=== PATIENT | male | born 1930 | race Hispanic/Latino ===

== ENCOUNTER 2018-02-02 09:53 | Emergency (ER) | payer MEDICARE, BC ==
[2018-02-02 09:54] VITALS: BMI 28.3
--- NOTE | 2018-02-02 10:04 | ED PDOC ---
Arrival/HPI - General Time Seen by Provider: 02/02/18 09:59 Historian: Patient - History of Present Illness Narrative History of Present Illness (Text): 02/02/18 10:02 87 y/o male, pmh including htn/copd/a.fibb/bladder tumor/diverticulosis/GI bleed , allergic to omeprazole, c/o rt. rib injury and pain with 2 episodes of fall for the past 2 weeks. Pt. stated that he has frequent fall for the past 2 years , seen by his own pmd Dr. Young and evaluated by the neurologist which work up is negative so far, was on the anticoagulant but resolved, last fall episode was this morning while he was going up the stair and tripped over the cane and landed on the rt. anterior chest, last fall was last week saturday which he fall over the step and landed on the rt. anterior chest, no urinary symptoms, no hematuria, no night sweat, no dizziness, no change in vision, no palpitation/ chest pain, no other medical or psychological complaints. Past Medical History - Provider Review Nursing Documentation Reviewed: Yes - Infectious Disease Hx of Infectious Diseases: None - Tetanus Immunization Tetanus Immunization: Unknown - Cardiac Hx Cardiac Disorders: Yes Hx Atrial Fibrillation: Yes Hx Hypertension: Yes Hx Pacemaker: Yes - Pulmonary Hx Respiratory Disorders: Yes Hx Chronic Obstructive Pulmonary Disease (COPD): Yes - Neurological Hx Neurological Disorder: No Hx Transient Ischemic Attacks (TIA): No - HEENT Hx HEENT Disorder: Yes (eyeglasses) Hx Cataracts: Yes (b/l sx) Hx Glaucoma: Yes - Renal Hx Renal Disorder: No Hx Renal Failure: No - Endocrine/Metabolic Hx Endocrine Disorders: Yes Hx Diabetes Mellitus Type 2: Yes - Hematological/Oncological Hx Blood Disorders: Yes (blood transfusions 4 units) Hx AIDS: No Hx Anemia: Yes (iron deficiency anemia) Hx Cancer: No Hx Chemotherapy: No Hx Cirrhosis: No Hx Hepatitis A: No Hx Hepatitis B: No Hx Hepatitis C: No Hx Metastasis: No Hx Shingles: No Hx Unexplained Bleeding: No - Integumentary Hx Dermatological Disorder: No Hx Basal Cell Carcinoma: No Hx Eczema: No Hx Melanoma: No Hx Psoriasis: No Hx Squamous Cell Carcinoma: No - Musculoskeletal/Rheumatological Hx Musculoskeletal Disorders: No Hx Falls: No - Gastrointestinal Hx Gastrointestinal Disorders: Yes Hx Gall Bladder Disease: Yes - Genitourinary/Gynecological Hx Genitourinary Disorders: Yes (bladder tumor) Hx Hematuria: No Hx Incontinence: No Hx Prostate Problems: No Hx Sexually Transmitted Diseases: No Hx Urinary Tract Infection: No - Psychiatric Hx Psychophysiologic Disorder: No Hx Emotional Abuse: No Hx Physical Abuse: No Hx Substance Use: No - Past Surgical History Past Surgical History: Unable to Obtain - Surgical History Hx Amputation: No Hx Appendectomy: No Hx Cardiac Catheterization: No Hx Cholecystectomy: Yes (nicole lap 03/10) Hx Coronary Stent: No Hx Gastric Bypass Surgery: No Hx Hysterectomy: No Hx Joint Replacement: No Hx Kidney Transplant: No Hx Liver Transplant: No Hx Mastectomy: No Hx Musculoskeletal Surgery: No Hx Open Heart Surgery: No Hx Orthopedic Surgery: No Hx Splenectomy: No Hx Valve Replacement: No Other/Comment: cysto excision of bladder tumor, colonoscopy, egd - Anesthesia Hx Anesthesia Reactions: No Hx Malignant Hyperthermia: No - Suicidal Assessment Feels Threatened In Home Enviroment: No Family/Social History - Physician Review Nursing Documentation Reviewed: Yes Family/Social History: Unknown Family HX Smoking Status: Former Smoker Hx Alcohol Use: Yes Hx Substance Use: No Allergies/Home Meds Allergies/Adverse Reactions: Allergies omeprazole Allergy (Severe, Verified 02/02/18 10:26) RASH shellfish derived Allergy (Severe, Verified 02/02/18 10:26) GI UPSET EGG Adverse Reaction (Severe, Verified 02/02/18 10:20) NAUSEA Home Medications: Home Meds Medication Instructions Recorded Confirmed Oxybutynin [Ditropan Tab] 10 mg PO DAILY 07/08/16 02/02/18 Amiodarone [Cordarone] 200 mg PO DAILY 09/14/16 02/02/18 [id number] CD [Cardizem CD] 240 mg PO DAILY 09/14/16 02/02/18 Cu/Se/Vit A/Vit C/Vit E/Zinc 1 tab PO DAILY 02/02/18 02/02/18 [Ocuvite] Ergocalciferol (Vitamin D2) 2,000 iu PO DAILY 02/02/18 02/02/18 [Vitamin D2] Multivit-Min/FA/Lycopen/Lutein 1 tab PO DAILY 02/02/18 02/02/18 [Centrum Silver Tablet] Travoprost [Travatan Z] 1 drop BOTHEYES DAILY 02/02/18 02/02/18 Vitamin B Complex [Balance B-100] 1 tab PO DAILY 02/02/18 02/02/18 Review of Systems - Review of Systems Constitutional: absent: Fatigue, Fevers Eyes: absent: Vision Changes ENT: absent: Hearing Changes Respiratory: absent: SOB, Cough Cardiovascular: absent: Chest Pain Gastrointestinal: absent: Abdominal Pain, Diarrhea, Nausea, Vomiting Musculoskeletal: Myalgias. absent: Arthralgias, Back Pain Skin: absent: Rash, Pruritis, Skin Lesions Neurological: absent: Headache, Dizziness Psychiatric: absent: Anxiety, Depression, Suicidal Ideation Physical Exam Vital Signs Reviewed: Yes Vital Signs Temp Pulse Resp BP Pulse Ox 02/02/18 10:11 97.7 F 59 L 16 185/72 H 100 Temperature: Afebrile Blood Pressure: Hypertensive Pulse: Bradycardic Respiratory Rate: Normal Appearance: Positive for: Well-Appearing, Non-Toxic, Comfortable Pain Distress: Mild Mental Status: Positive for: Alert and Oriented X 3 - Systems Exam Head: Present: Atraumatic, Normocephalic Pupils: Present: PERRL Extroacular Muscles: Present: EOMI Conjunctiva: Present: Normal Mouth: Present: Moist Mucous Membranes Neck: Present: Normal Range of Motion Respiratory/Chest: Present: Clear to Auscultation, Good Air Exchange, Tender to Palpation (+ttp on the rt. anterior lateral rib cage region, no ecchymosis/ laceration/abrasion. ). No: Respiratory Distress, Accessory Muscle Use, Wheezes , Decreased Breath Sounds, Rales, Retracting, Rhonchi, Tachypneic Cardiovascular: Present: Regular Rate and Rhythm, Normal S1, S2. No: Murmurs Abdomen: Present: Normal Bowel Sounds. No: Tenderness, Distention, Peritoneal Signs Back: Present: Normal Inspection. No: CVA Tenderness, Midline Tenderness, Paraspinal Tenderness Upper Extremity: Present: Normal Inspection. No: Cyanosis, Edema Lower Extremity: Present: Normal Inspection. No: Edema Neurological: Present: GCS=15, CN II-XII Intact, Speech Normal, Motor Func Grossly Intact, Memory Normal Skin: Present: Warm, Dry, Normal Color. No: Rashes Psychiatric: Present: Alert, Oriented x 3, Normal Insight, Normal Concentration Medical Decision Making ED Course and Treatment: 02/02/18 10:33 -labs/ua -CT head/chest -tylenol -observe and reassess 02/02/18 12:29 -CT head: No acute intracranial abnormalities. No significant findings to account for the clinical presentation. No significant interval change compared to the prior examination(s). -CT facial: No acute findings related to/accounting for the clinical presentation. -labs are non-significant except hgb 11.7 from 11.2 (chronic anemia), BUN is 22 (drinking fluid and tolerating po), UA show mild leukocyte which will treat with keflex. -Discharge home with tylenol, keflex, ice compression, bed rest, follow up with your own pmd and orthopedic within 2 days, return to the ER for any new or worsening signs or symptoms. - Lab Interpretations Lab Results: 02/02/18 11:07 02/02/18 11:07 Lab Results 02/02/18 11:07: Urine Color Yellow, Urine Appearance Clear, Urine pH 7.0, Ur Specific [place] 1.015, Urine Protein Negative, Urine Glucose (UA) Negative, Urine Ketones Negative, Urine Blood Negative, Urine Nitrate Negative, Urine Bilirubin Negative, Urine Urobilinogen 1.0 H, Ur Leukocyte Esterase Trace H, Urine RBC Negative, Urine WBC 2 - 5, Ur Epithelial Cells 0 - 2, Urine Bacteria Large 02/02/18 11:07: WBC 5.3, RBC 4.01, Hgb 11.7 L, Hct 36.3 L, MCV 90.5, MCH 29.2, MCHC 32.2, RDW 14.7 H, Plt Count 197, MPV 11.0, Gran % 67.0, Lymph % (Auto) 18.9 L, [place] % (Auto) 10.9 H, Eos % (Auto) 2.6, Baso % (Auto) 0.6, Gran # 3.57, Lymph # (Auto) 1.0 L, [place] # (Auto) 0.6, Eos # (Auto) 0.1, Baso # (Auto) 0.03 02/02/18 11:07: Sodium 140, Potassium 4.3, Chloride 104, Carbon Dioxide 29, Anion Gap 12, BUN 22 H, Creatinine 1.0, Est GFR ( Amer) > 60, Est GFR ( Non-Af Amer) > 60, Random Glucose 105, Calcium 9.4, Total Bilirubin 0.6, AST 45 , ALT 36, Alkaline Phosphatase 85, Total Protein 7.1, Albumin 3.9, Globulin 3.2 , Albumin/Globulin Ratio 1.2 - RAD Interpretation Radiology Orders: 02/02/18 10:30 CHEST W/O CONTRAST [CT] Stat HEAD W/O CONTRAST [CT] Stat CT Head: No intracranial hemorrhage. BRAIN: No mass effect or edema. 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 VENTRICLES: Unremarkable. No hydrocephalus. CALVARIUM: Unremarkable. PARANASAL SINUSES: Unremarkable as visualized. No significant inflammatory changes. MASTOID AIR CELLS: Unremarkable as visualized. No inflammatory changes. OTHER FINDINGS: None. IMPRESSION: No acute intracranial abnormalities. No significant findings to account for the clinical presentation. No significant interval change compared to the prior examination(s). -------- CT Chest: COMPARISON: None TECHNIQUE: Contiguous axial images were obtained through the chest without intravenous contrast enhancement. Sagittal and coronal reconstructions were performed. Radiation dose (DLP): 386.45 mGy-cm. This CT exam was performed using one or more of the following dose reduction techniques: Automated exposure control, adjustment of the mA and/or kV according to patient size, and/or use of iterative reconstruction technique. FINDINGS: LUNGS: Clear lungs. Visualized airway clear. MEDIASTINUM: Unremarkable thoracic aorta. No aneurysm. Normal sized heart. Main pulmonary artery unremarkable. No vascular congestion. No lymphadenopathy. PLEURA: No pleural fluid. No pneumothorax. BONES: No fracture. No destructive lesion. UPPER ABDOMEN: Grossly unremarkable. OTHER FINDINGS: None. IMPRESSION: No acute findings related to/accounting for the clinical presentation. Financial Aid Coordinator: Radiologist - Medication Orders Current Medication Orders: Discontinued Medications Acetaminophen (Tylenol 325mg Tab) 650 mg PO STAT STA Stop: 02/02/18 10:32 Last Admin: 02/02/18 10:54 Dose: 650 mg MAR Pain/Vitals Document 02/02/18 10:54 EWO (Rec: 02/02/18 10:56 EWO [id number]) Pain Reassessment Is This A Pain ReAssessment? No Sleep Is patient sleeping during reassessment? 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 Disposition/Present on Arrival - Present on Arrival Any Indicators Present on Arrival: No History of DVT/PE: Yes History of Uncontrolled Diabetes: No Urinary Catheter: No History of Decub. Ulcer: No History Surgical Site Infection Following: None - Disposition Have Diagnosis and Disposition been Completed?: Yes Diagnosis: Rib pain, Accidental fall, UTI (urinary tract infection) Disposition: HOME/ ROUTINE Disposition Time: 10:38 Patient Plan: Discharge Condition: IMPROVED Additional Instructions: -Discharge home with tylenol, keflex, ice compression, bed rest, follow up with your own pmd and orthopedic within 2 days, return to the ER for any new or worsening signs or symptoms. Prescriptions: Acetaminophen [Tylenol 325mg tab] 2 tab PO QID PRN #30 tab PRN Reason: Other Cephalexin [cephalexin] 500 mg PO TID #21 cap Referrals: José Miguel Young MD [Primary Care Provider] - Follow up with primary Alexandra Verdin MD [Staff Provider] - Follow up with primary
[2018-02-02 10:32] VITALS: TEMP 97.7
[2018-02-02 11:26] LABS: ALB/GLOB RATIO 1.2 (1.1-1.8); ALBUMIN 3.9 g/dL (3.0-4.8); ALT/SGPT 36 U/L (7-56); AST/SGOT 45 U/L (17-59); BLOOD UREA NITROGEN 22 mg/dL (7-21); CALCIUM 9.4 mg/dL (8.4-10.5); GFR AFRICAN-AMERICAN > 60; GFR NON-AFRICAN AMERICAN > 60
[2018-02-02 11:35] LABS: BASO # 0.03 K/mm3 (0.0-2.0); BASO % 0.6 % (0.0-3.0); EOS # 0.1 (0.0-0.7); EOS % 2.6 % (1.5-5.0); GRAN # 3.57 (1.4-6.5); HEMOGLOBIN 11.7 g/dL (14.0-18.0); LYMPH % 18.9 % (22.0-35.0); MEAN CELL VOLUME 90.5 fl (80.0-105.0); MEAN CORPUSCULAR HEMOGLOBIN 29.2 pg (25.0-35.0); MEAN CORPUSCULAR HGB CONC 32.2 g/dl (31.0-37.0); MONO # 0.6 (0.1-0.6); MONO % 10.9 % (1.0-6.0); RBC 4.01 10^6/uL (3.5-6.1); RED CELL DISTRIBUTION WIDTH 14.7 % (11.5-14.5); URINE BILIRUBIN NEGATIVE (NEGATIVE); URINE BLOOD NEGATIVE (NEGATIVE); URINE GLUCOSE (UA) NEGATIVE (NEGATIVE); URINE LEUKOCYTE ESTERASE TRACE Leu/uL (NEGATIVE); URINE PROTEIN NEGATIVE mg/dL (<30 mg/dL); WHITE BLOOD COUNT 5.3 10^3/ul (4.5-11.0)
[2018-02-02 11:36] LABS: URINE APPEARANCE CLEAR (CLEAR); URINE COLOR YELLOW (YELLOW)
[2018-02-02 11:49] LABS: URINE BACTERIA LARGE (NEG); URINE EPITHELIAL CELLS 0 - 2 /hpf (0-5); URINE RBC NEGATIVE /hpf (0-2)
--- NOTE | 2018-02-02 11:50 | CT ---
PROCEDURE: CT HEAD WITHOUT CONTRAST. HISTORY: frequent fall COMPARISON: 09/14/2016 CT head TECHNIQUE: Axial computed tomography images were obtained through the head/brain without intravenous contrast. Coronal and sagittal reconstructed images. Radiation dose: Total exam DLP = 836.86 mGy-cm. This CT exam was performed using one or more of the following dose reduction techniques: Automated exposure control, adjustment of the mA and/or kV according to patient size, and/or use of iterative reconstruction technique. FINDINGS: HEMORRHAGE: No intracranial hemorrhage. BRAIN: No mass effect or edema. 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 VENTRICLES: Unremarkable. No hydrocephalus. CALVARIUM: Unremarkable. PARANASAL SINUSES: Unremarkable as visualized. No significant inflammatory changes. MASTOID AIR CELLS: Unremarkable as visualized. No inflammatory changes. OTHER FINDINGS: None. IMPRESSION: No acute intracranial abnormalities. No significant findings to account for the clinical presentation. No significant interval change compared to the prior examination(s).
--- NOTE | 2018-02-02 11:54 | CT ---
PROCEDURE: CT Chest without contrast HISTORY: fall, rt. sided rib pain and injury COMPARISON: None TECHNIQUE: Contiguous axial images were obtained through the chest without intravenous contrast enhancement. Sagittal and coronal reconstructions were performed. Radiation dose (DLP): 386.45 mGy-cm. This CT exam was performed using one or more of the following dose reduction techniques: Automated exposure control, adjustment of the mA and/or kV according to patient size, and/or use of iterative reconstruction technique. FINDINGS: LUNGS: Clear lungs. Visualized airway clear. MEDIASTINUM: Unremarkable thoracic aorta. No aneurysm. Normal sized heart. Main pulmonary artery unremarkable. No vascular congestion. No lymphadenopathy. PLEURA: No pleural fluid. No pneumothorax. BONES: No fracture. No destructive lesion. UPPER ABDOMEN: Grossly unremarkable. OTHER FINDINGS: None. IMPRESSION: No acute findings related to/accounting for the clinical presentation.
[2018-02-02 12:57] VITALS: BP 159/80; PULSE 78; RESP 18; O2SAT 98
== END 2018-02-02 13:03 | disposition home or self-care (01) ==
LOC: ED 09:53
DX: R07.81 Pleurodynia (principal); W01.0XXA Fall on same level from slipping, tripping and stumbling without subsequent striking against object, initial encounter; Z91.81 History of falling; Y92.89 Other specified places as the place of occurrence of the external cause; N39.0 Urinary tract infection, site not specified; I48.91 Unspecified atrial fibrillation; I10 Essential (primary) hypertension; Z95.0 Presence of cardiac pacemaker; E11.9 Type 2 diabetes mellitus without complications; D50.9 Iron deficiency anemia, unspecified; Z87.891 Personal history of nicotine dependence

== ENCOUNTER 2018-10-14 23:54 | Inpatient (IN) | payer MEDICARE, BC ==
[2018-10-15] VITALS: BMI 25.4
[2018-10-15] MEDS ORDERED: TraMADol/Apap 37.5/325 mg Tab PO STA (00:13)
[2018-10-15] MEDS ORDERED: TDAP Vaccine 0.5 mL Syr IM ONE (00:13)
--- NOTE | 2018-10-15 00:18 | ED PDOC ---
Arrival/HPI - General Historian: Patient, EMS - History of Present Illness Narrative History of Present Illness (Text): 10/15/18 00:14 87 y/o male, last tetanus doesn't remember, pmh including htn/a.fibb(was on anticoagulant)/copd/bladder tumor, allergic to PPI, bib s/p fall with head injury and laceration along with left hip pain x 5.5 hours. Pt. stated that he was carrying the trash bag, fall to the left hip region and posterior head injury, sustained scalp laceration, no LOC, able to recall the whole event, no night sweat, no rash, no chest pain or palpitation, no other medical or psychological complaints. Context: Home <Pranav Shaffer - Last Filed: 10/15/18 16:34> <Ravi Jordan - Last Filed: 10/17/18 11:35> - General Chief Complaint: Trauma Past Medical History - Provider Review Nursing Documentation Reviewed: Yes - Infectious Disease Hx of Infectious Diseases: None - Tetanus Immunization Tetanus Immunization: Unknown - Cardiac Hx Cardiac Disorders: Yes Hx Atrial Fibrillation: Yes Hx Hypertension: Yes Hx Pacemaker: Yes - Pulmonary Hx Respiratory Disorders: Yes Hx Chronic Obstructive Pulmonary Disease (COPD): Yes - Neurological Hx Neurological Disorder: No Hx Transient Ischemic Attacks (TIA): No - HEENT Hx HEENT Disorder: Yes (eyeglasses) Hx Cataracts: Yes (b/l sx) Hx Glaucoma: Yes - Renal Hx Renal Disorder: No Hx Renal Failure: No - Endocrine/Metabolic Hx Endocrine Disorders: Yes Hx Diabetes Mellitus Type 2: Yes - Hematological/Oncological Hx Blood Disorders: Yes (blood transfusions 4 units) Hx AIDS: No Hx Anemia: Yes (iron deficiency anemia) Hx Cancer: No Hx Chemotherapy: No Hx Cirrhosis: No Hx Hepatitis A: No Hx Hepatitis B: No Hx Hepatitis C: No Hx Metastasis: No Hx Shingles: No Hx Unexplained Bleeding: No - Integumentary Hx Dermatological Disorder: No Hx Basal Cell Carcinoma: No Hx Eczema: No Hx Melanoma: No Hx Psoriasis: No Hx Squamous Cell Carcinoma: No - Musculoskeletal/Rheumatological Hx Musculoskeletal Disorders: No Hx Falls: No - Gastrointestinal Hx Gastrointestinal Disorders: Yes Hx Gall Bladder Disease: Yes - Genitourinary/Gynecological Hx Genitourinary Disorders: Yes (bladder tumor) Hx Hematuria: No Hx Incontinence: No Hx Prostate Problems: No Hx Sexually Transmitted Diseases: No Hx Urinary Tract Infection: No - Psychiatric Hx Psychophysiologic Disorder: No Hx Emotional Abuse: No Hx Physical Abuse: No Hx Substance Use: No - Past Surgical History Past Surgical History: Unable to Obtain - Surgical History Hx Amputation: No Hx Appendectomy: No Hx Cardiac Catheterization: No Hx Cholecystectomy: Yes (nicole lap 03/10) Hx Coronary Stent: No Hx Gastric Bypass Surgery: No Hx Hysterectomy: No Hx Joint Replacement: No Hx Kidney Transplant: No Hx Liver Transplant: No Hx Mastectomy: No Hx Musculoskeletal Surgery: No Hx Open Heart Surgery: No Hx Orthopedic Surgery: No Hx Splenectomy: No Hx Valve Replacement: No Other/Comment: cysto excision of bladder tumor, colonoscopy, egd - Anesthesia Hx Anesthesia Reactions: No Hx Malignant Hyperthermia: No - Suicidal Assessment Feels Threatened In Home Enviroment: No <Pranav Shaffer - Last Filed: 10/15/18 16:34> Family/Social History - Physician Review Nursing Documentation Reviewed: Yes Family/Social History: Unknown Family HX Smoking Status: Former Smoker Hx Alcohol Use: Yes Hx Substance Use: No <Pranav Shaffer - Last Filed: 10/15/18 16:34> Allergies/Home Meds <Pranav Shaffer - Last Filed: 10/15/18 16:34> <Ravi Jordan - Last Filed: 10/17/18 11:35> Allergies/Adverse Reactions: Allergies omeprazole Allergy (Severe, Verified 02/02/18 10:26) RASH shellfish derived Allergy (Severe, Verified 02/02/18 10:26) GI UPSET EGG Adverse Reaction (Severe, Verified 02/02/18 10:20) NAUSEA Home Medications: Home Meds Medication Instructions Recorded Confirmed RX: Oxybutynin [Ditropan Tab] 10 mg PO DAILY 07/08/16 02/02/18 RX: Amiodarone [Cordarone] 200 mg PO DAILY 09/14/16 02/02/18 RX: diltiaZEM CD [Cardizem CD] 240 mg PO DAILY 09/14/16 02/02/18 RX: Cu/Se/Vit A/Vit C/Vit E/Zinc 1 tab PO DAILY 02/02/18 02/02/18 [Ocuvite] RX: Ergocalciferol (Vitamin D2) 2,000 iu PO DAILY 02/02/18 02/02/18 [Vitamin D2] RX: Multivit-Min/FA/Lycopen/Lutein 1 tab PO DAILY 02/02/18 02/02/18 [Centrum Silver Tablet] RX: Travoprost [Travatan Z] 1 drop BOTHEYES DAILY 02/02/18 02/02/18 RX: Vitamin B Complex [Balance 1 tab PO DAILY 02/02/18 02/02/18 B-100] Review of Systems - Review of Systems Constitutional: absent: Fatigue, Fevers Eyes: absent: Vision Changes ENT: absent: Hearing Changes Respiratory: absent: SOB, Cough Cardiovascular: absent: Chest Pain Gastrointestinal: absent: Abdominal Pain, Diarrhea, Nausea, Vomiting Musculoskeletal: Arthralgias. absent: Back Pain, Neck Pain, Joint Swelling Skin: Laceration. absent: Rash, Pruritis, Skin Lesions, Abscess, Ulcer, Cellulitis Neurological: absent: Headache, Dizziness Psychiatric: absent: Anxiety, Depression, Suicidal Ideation <Pranav Shaffer Q - Last Filed: 10/15/18 16:34> Physical Exam Vital Signs Reviewed: Yes Vital Signs Temp Pulse Resp BP Pulse Ox 10/15/18 00:00 98.8 F 57 L 16 145/64 100 Temperature: Afebrile Blood Pressure: Normal Pulse: Bradycardic Respiratory Rate: Normal Appearance: Positive for: Well-Appearing, Non-Toxic, Comfortable Pain Distress: Mild Mental Status: Positive for: Alert and Oriented X 3 - Systems Exam Head: Present: Laceration (posterior occipital visible approx. 2cm superficial laceration noted), Other (no facial bony tenderness or swelling. ). No: Tenderness, Contusion, Swelling, Ecchymosis, Abrasion Pupils: Present: PERRL Extroacular Muscles: Present: EOMI Conjunctiva: Present: Normal Ears: Present: NORMAL TM, Normal Canal Mouth: Present: Moist Mucous Membranes Pharnyx: Present: Normal. No: ERYTHEMA, EXUDATE, TONSILS ENLARGED Nose (External): Present: Atraumatic. No: Abrasion, Contusion, Laceration Nose (Internal): Present: Normal Inspection, No Active Bleeding. No: Rhinorrhea, Septal Hematoma, Epistaxis Neck: Present: Normal Range of Motion, Trachea Midline. No: Meningeal Signs, MIDLINE TENDERNESS, Paraspinal Tenderness, Lymphadenopathy Respiratory/Chest: Present: Clear to Auscultation, Good Air Exchange. No: Respiratory Distress, Accessory Muscle Use, Wheezes, Decreased Breath Sounds, Rales, Retracting, Rhonchi, Tachypneic, Tender to Palpation Cardiovascular: Present: Regular Rate and Rhythm, Normal S1, S2. No: Murmurs Abdomen: No: Tenderness, Distention, Peritoneal Signs, Rebound, Guarding Back: Present: Normal Inspection. No: CVA Tenderness, Midline Tenderness, Paraspinal Tenderness, Pain with Leg Raise, Decubitus Ulcer Upper Extremity: Present: Normal Inspection, Normal ROM, NORMAL PULSES, Neurovascularly Intact. No: Cyanosis, Edema, Tenderness, Swelling, Deformity Lower Extremity: Present: Normal Inspection, NORMAL PULSES, Normal ROM, Neurovascularly Intact, Capillary Refill < 2 s, Other (Lt. hip: mild tenderness but no swellin, no ecchymosis, FROM without limitation, sensation intact, motor 5/5, +DPPT pulses, capillary refill< 2 seconds neurovascular intact. ). No: Edema, CALF TENDERNESS, Swelling, Deformity Neurological: Present: GCS=15, CN II-XII Intact, Speech Normal, Motor Func Grossly Intact, Memory Normal Skin: Present: Warm, Dry, Normal Color. No: Rashes Psychiatric: Present: Alert, Oriented x 3, Normal Insight, Normal Concentration <Pranav Shaffer - Last Filed: 10/15/18 16:34> Vital Signs Temp Pulse Resp BP Pulse Ox 10/15/18 01:11 97.8 F 10/15/18 00:30 62 18 112/61 98 10/15/18 00:00 98.8 F 57 L 16 145/64 100 <Ravi Jordan - Last Filed: 10/17/18 11:35> Medical Decision Making ED Course and Treatment: 10/15/18 00:20 -labs -CT -Xray -EKG -tdap/tramadol -wound irrigate/clean, will staple -Observe and reassess 10/15/18 01:44 PROCEDURE: LACERATION REPAIR Performed by the emergency provider Location: posterior occipital Length: 2 cm Description: {"clean wound edges","no foreign bodies"} Distal CMS: Normal. No deficits. Neurovascularly intact. Anesthesia: Lidocaine 1% 0.5cc Preparation: The wound was cleaned with NS 1000cc and Betadyne. The area was prepped and draped in the usual sterile fashion. Exploration: The wound was explored and no foreign bodies were found. Procedure: The wound was closed with shade. There was {good / appropriate / adequate / loose} approximation. In total, 5 were used. Post-Procedure: Good closure and hemostasis. The patient tolerated the procedure well and there were no complications. CSM remains intact. Post procedure dressing applied. -EKG: Atrial Pace @ 58 BPM, no ST elevation or depression, no T wave inversion -CT Head ordered and pending result. -Hip and pelvis xrays: ER wet read: +degenerative changes, no fracture or dislocation -CXR ER wet read: +pace maker, no active disease -Labs show no acute findings except BNP 2380 with no previous comparison (2016 echo show no signs of CHF except pulmonary htn and tricuspid regurgitation) -CPK 175 -UA ordered and pending result. -Case discussed with DR. Jordan as he would follow up the CT head and UA result plus the dispo of this patient, shade need to be removed by day 7 - RAD Interpretation Radiology Orders: 10/15/18 00:13 HEAD W/O CONTRAST [CT] Stat HIP MIN 2V W/ PELVIS DANAE [RAD] Stat -CT Head: see report -Hip and pelvis xrays: no acute findings ------ ------ -CXR: no active disease Pharmacologist: Radiologist - EKG Interpretation EKG Interpretation (Text): 10/15/18 01:43 -EKG: Atrial Pace @ 58 BPM, no ST elevation or depression, no T wave inversion Interpreted by ED Physician: Yes Type: 12 lead EKG <Shaffer,Pranav Q - Last Filed: 10/15/18 16:34> ED Course and Treatment: CT Head: There is normal configuration of sella turcica. There are no intra or extra- axial collections. There is no mass effect or midline shift. There is no evidence of hematoma formation. No hydrocephalus is present. The ventricles are symmetrical. No abnormal calcifications are present. There is diffuse age-appropriate cerebellar and cerebral atrophy with proportionally dilated ventricles and cortical sulci. There are bilateral periventricular and subcortical white matter hypolucencies compatible with mild chronic microvascular disease. Otherwise, no significant focal abnormalities are seen either in the posterior fossa or supratentorial compartment. Mild chronic mucosal inflammatory changes of the maxillary sinuses and ethmoid air cells. IMPRESSION: 1. Age-appropriate cerebellar and cerebral atrophy. 2. Mild chronic microvascular disease. 3. No evidence of acute intracranial pathology. Electronically signed on Oct 15, 2018 2:24:28 AM EST by: Adrián Benavides M.D., Certified by ABR, MSK, Neuroradiology case d/w dr bradford will obs on tele for near syncope - Lab Interpretations Lab Results: 10/15/18 00:49 10/15/18 00:49 Lab Results 10/15/18 00:49: WBC 11.8 H, RBC 3.84, Hgb 11.2 L, Hct 34.2 L, MCV 89.1, MCH 29.2, MCHC 32.7, RDW 14.8 H, Plt Count 233, MPV 10.2, Gran % 82.8 H, Lymph % (Auto) 7.6 L, Gaston % (Auto) 9.1 H, Eos % (Auto) 0.3 L, Baso % (Auto) 0.2, Gran # 9.78 H, Lymph # (Auto) 0.9 L, Gaston # (Auto) 1.1 H, Eos # (Auto) 0.0, Baso # (Auto) 0.02 10/15/18 00:49: Sodium 138, Potassium 3.8, Chloride 105, Carbon Dioxide 28, Anion Gap 9 L, BUN 19, Creatinine 0.8, Est GFR ( Amer) > 60, Est GFR (Non-Af Amer) > 60, Random Glucose 137 H, Calcium 8.5, Total Bilirubin 0.6, AST 41, ALT 42, Alkaline Phosphatase 83, Total Creatine Kinase 175, NT-Pro-B Natriuret Pep 2380 H, Total Protein 6.4, Albumin 3.3, Globulin 3.0, Albumin/Glob ulin Ratio 1.1 - RAD Interpretation Radiology Orders: 10/15/18 00:13 HEAD W/O CONTRAST [CT] Stat HIP MIN 2V W/ PELVIS DANAE [RAD] Stat 10/15/18 00:15 CHEST TWO VIEWS (PA/LAT) [RAD] Stat - Medication Orders Current Medication Orders: Discontinued Medications Tetanus/Reduced Diphtheria/Acell Pertussis (Boostrix Vaccine Inj) 0.5 ml IM .ONCE ONE Stop: 10/15/18 00:14 Last Admin: 10/15/18 01:03 Dose: 0.5 ml MAR Immunization Data Document 10/15/18 01:03 IT (Rec: 10/15/18 01:03 IT [id number]) Immunization Data Vaccine Information Sheet Given Yes Tramadol/Acetaminophen (Ultracet 37.5/325 Mg) 1 tab PO STAT STA Stop: 10/15/18 00:14 Last Admin: 10/15/18 01:04 Dose: 1 tab MAR Pain Assessment Document 10/15/18 01:04 IT (Rec: 10/15/18 01:04 IT [id number]) Pain Reassessment Is this a pain reassessment? Yes Pain Scale Used Protocol: PSCALES Pain Scale Used Numeric Location Left, Right or Bilateral Left Pain Location Body Site Hip <Ravi Jordan - Last Filed: 10/17/18 11:35> - PA / LEATHER FLESHER / Resident Statement MD/DO has reviewed & agrees with the documentation as recorded. <Pranav Shaffer - Last Filed: 10/15/18 16:34> Disposition/Present on Arrival - Present on Arrival Any Indicators Present on Arrival: No History of DVT/PE: Yes History of Uncontrolled Diabetes: No Urinary Catheter: No History of Decub. Ulcer: No History Surgical Site Infection Following: None - Disposition Have Diagnosis and Disposition been Completed?: Yes Disposition Time: 02:25 <Pranav Shaffer - Last Filed: 10/15/18 16:34> <Ravi Jordan - Last Filed: 10/17/18 11:35> - Disposition Diagnosis: Scalp laceration, Fall, Hip pain, Elevated brain natriuretic peptide (BNP) level, Unstable gait Disposition: HOSPITALIZED Patient Problems: Current Active Problems Problem Status Onset Elevated brain natriuretic peptide (BNP) level Acute Fall Acute Hip pain Acute Scalp laceration Acute Unstable gait Acute Condition: STABLE
[2018-10-15 01:00] LABS: BASO # 0.02 K/mm3 (0.0-2.0); BASO % 0.2 % (0.0-3.0); EOS % 0.3 % (1.5-5.0); GRAN # 9.78 (1.4-6.5); GRAN % 82.8 % (50.0-68.0); HEMOGLOBIN 11.2 g/dL (14.0-18.0); LYMPH # 0.9 (1.2-3.4); LYMPH % 7.6 % (22.0-35.0); MEAN CELL VOLUME 89.1 fl (80.0-105.0); MEAN CORPUSCULAR HEMOGLOBIN 29.2 pg (25.0-35.0); MEAN CORPUSCULAR HGB CONC 32.7 g/dl (31.0-37.0); MEAN PLATELET VOLUME 10.2 fl (7.0-11.0); MONO # 1.1 (0.1-0.6); MONO % 9.1 % (1.0-6.0); RBC 3.84 10^6/uL (3.5-6.1); RED CELL DISTRIBUTION WIDTH 14.8 % (11.5-14.5); WHITE BLOOD COUNT 11.8 10^3/uL (4.5-11.0)
[2018-10-15 01:10] LABS: ALB/GLOB RATIO 1.1 (1.1-1.8); ALBUMIN 3.3 g/dL (3.0-4.8); ALT/SGPT 42 U/L (7-56); AST/SGOT 41 U/L (17-59); BLOOD UREA NITROGEN 19 mg/dL (7-21); CALCIUM 8.5 mg/dL (8.4-10.5); GFR NON-AFRICAN AMERICAN > 60
[2018-10-15 01:19] LABS: B-TYPE NATRIURETIC PEPTIDE 2380 pg/mL (0-450)
[2018-10-15] MEDS ORDERED: Bacitracin 500 Units/gm Oint Foilpak UD ONE (02:22)
[2018-10-15 03:43] LABS: URINE BILIRUBIN NEGATIVE (NEGATIVE); URINE BLOOD TRACE-INTACT (NEGATIVE); URINE GLUCOSE (UA) NEGATIVE (NEGATIVE); URINE LEUKOCYTE ESTERASE SMALL Leu/uL (NEGATIVE); URINE PROTEIN NEGATIVE mg/dL (<30 mg/dL)
[2018-10-15 03:53] LABS: URINE APPEARANCE CLOUDY (CLEAR); URINE COLOR DARK YELLOW (YELLOW)
[2018-10-15 03:55] LABS: URINE RBC 0 - 2 /hpf (0-2)
[2018-10-15 03:56] LABS: URINE BACTERIA LARGE (NEG)
[2018-10-15 09:48] LABS: BASO # 0.02 K/mm3 (0.0-2.0); BASO % 0.2 % (0.0-3.0); EOS % 0.4 % (1.5-5.0); GRAN # 6.96 (1.4-6.5); GRAN % 81.3 % (50.0-68.0); HEMOGLOBIN 10.2 g/dL (14.0-18.0); LYMPH # 0.8 (1.2-3.4); LYMPH % 8.9 % (22.0-35.0); MEAN CELL VOLUME 88.9 fl (80.0-105.0); MEAN CORPUSCULAR HEMOGLOBIN 29.1 pg (25.0-35.0); MEAN CORPUSCULAR HGB CONC 32.7 g/dl (31.0-37.0); MEAN PLATELET VOLUME 10.7 fl (7.0-11.0); MONO # 0.8 (0.1-0.6); MONO % 9.2 % (1.0-6.0); RBC 3.51 10^6/uL (3.5-6.1); RED CELL DISTRIBUTION WIDTH 14.9 % (11.5-14.5); WHITE BLOOD COUNT 8.6 10^3/uL (4.5-11.0)
--- NOTE | 2018-10-15 09:55 | CT ---
Date of service: 10/15/2018 PROCEDURE: CT HEAD WITHOUT CONTRAST. HISTORY: fall, head injury COMPARISON: 02/02/2018 TECHNIQUE: Axial computed tomography images were obtained through the head/brain without intravenous contrast. Supplemental Coronal and Sagittal projections created and reviewed. Radiation dose: Total exam DLP = 1021.58 mGy-cm. This CT exam was performed using one or more of the following dose reduction techniques: Automated exposure control, adjustment of the mA and/or kV according to patient size, and/or use of iterative reconstruction technique. FINDINGS: HEMORRHAGE: No intracranial hemorrhage. BRAIN: No mass effect or edema. Cortical and cerebellar atrophy, periventricular small vessel disease. VENTRICLES: Unremarkable. No hydrocephalus. CALVARIUM: Unremarkable. PARANASAL SINUSES: Chronic ethmoid and maxillary sinus disease. Hypoplastic frontal sinuses. MASTOID AIR CELLS: Unremarkable as visualized. No inflammatory changes. OTHER FINDINGS: Scalp contusion high posterior right parietal region without calvarial or underlying intracranial abnormality IMPRESSION: No acute intracranial abnormalities. No significant findings to account for the clinical presentation. No significant interval change compared to the prior examination(s). Concordant results (preliminary interpretation) provided by LAURA BHATT. Procedure Completed: 01:23 Preliminary Report: Dictated and Authenticated: 02:24. Final Interpretation: 09:53.
--- NOTE | 2018-10-15 10:12 | CP.PCM.HP ---
<Alex Wong - Last Filed: 10/15/18 15:20> History of Present Illness - History of Present Illness History of Present Illness: H&P for Dr. Langford Service CC: Fall with head trauma, possible syncopal episode This is an 87 yo M with PMH of HTN, Afib, PPM placement, COPD, Bladder tumor s/p resection, DM2, and anemia who presents with complaint of fall at home with head trauma, stuck on floor (for approx 6 hrs) unable to stand up again. As per patient, was ambulating at home with walker, and suddenly fell backwards, striking his left hip and posterior left head. He denies loss of consciousness, but is unable to describe an etiology for the fall; denies tripping, syncope/near-syncope when standing, palpitations, generalized or focal weakness prior to the fall, dizziness, vision changes, fevers, chills, tremors, loss of bowel control, or acute-onset fatigue. Wears a diaper, so cannot attest to bladder incontinence specific to the event. He reports being on the ground for approximately 6 hours before he was able to crawl into the adjacent room and retrieve his cell phone to call 911. Was wearing a life-alert style wristband, but did not think to use it. In the ED, his scalp laceration was stapled closed, he underwent Head CT that was negative for acute intracranial process, and a left hip Xray negative for fracture. He is currently resting in bed comfortably (at time of exam), with no complaints. Denies headache, dizziness, shortness of breath, chest pain, room-s pinning, dizziness, or focal weakness. 12-system ROS reviewed and negative except as above. PMH: as above PSH: pacer placement Fam Hx: pt denies Soc Hx: lung ca (sister) PMD: Dr. Young Present on Admission - Present on Admission Any Indicators Present on Admission: Yes History of DVT/PE: Yes History of Uncontrolled Diabetes: No Review of Systems - Review of Systems All systems: reviewed and no additional remarkable complaints except (as per HPI) Past Patient History - Infectious Disease Hx of Infectious Diseases: None - Tetanus Immunizations Tetanus Immunization: Unknown - Past Social History Smoking Status: Former Smoker - CARDIAC Hx Cardiac Disorders: Yes Hx Angina: No Hx Cardia Arrhythmia: Yes Hx Circulatory Problems: No Hx Congestive Heart Failure: No Hx Heart Murmur: No Hx Heart Transplant: No Hx Hypercholesterolemia: Yes Hx Hypertension: Yes Hx Internal Defibrillator: No Hx Mitral Valve Prolapse: No Hx Pacemaker: Yes Hx Peripheral Edema: Yes Hx Peripheral Vascular Disease: No - PULMONARY Hx Respiratory Disorders: Yes Hx Asthma: No Hx Bronchitis: Yes Hx Chronic Obstructive Pulmonary Disease (COPD): Yes Hx Emphysema: No Hx Pneumonia: No Hx Respiratory Aspiration: No Hx Respiratory Tract Infection: No Hx Sleep Apnea: No Hx Tuberculosis: No - NEUROLOGICAL Hx Neurological Disorder: No Hx Alzheimer's Disease: No HX Cerebrovascular Accident: No Hx Dementia: No Hx Dizziness: No Hx Meningitis: No Hx Migraine: No Hx Parkinson's Disease: No Hx Seizures: No Hx Transient Ischemic Attacks (TIA): No - HEENT Hx HEENT Problems: Yes Hx Blind: No Hx Cataracts: Yes Hx Deafness: Yes Hx Difficulty Chewing: No Hx Epistaxis: No Hx Glaucoma: No Hx Macular Degeneration: No Other/Comment: wears glasses - RENAL Hx Chronic Kidney Disease: No Hx Dialysis: No Hx Kidney Stones: No Hx Neurogenic Bladder: No Hx Pyelonephritis: No Hx Renal (Kidney) Cancer: No Hx Renal Failure: No - ENDOCRINE/METABOLIC Hx Endocrine Disorders: Yes Hx Adrenal Cancer: No Hx Diabetes Insipidus: No Hx Diabetes Mellitus Type 1: No Hx Diabetes Mellitus Type 2: Yes Hx Hyperthyroidism: No Hx Hypothyroidism: No Hx Systemic Lupus Erythematosus: No - HEMATOLOGICAL/ONCOLOGICAL Hx Blood Disorders: No Hx AIDS: No Hx Anemia: No Hx Cancer: No Hx Chemotherapy: No Hx Cirrhosis: No Hx Hemophilia: No Hx Hepatitis A: No Hx Hepatitis B: No Hx Hepatitis C: No Hx Human Immunodeficiency Virus (HIV): No Hx Metastesis: No Hx Shingles: No Hx Sickle Cell Disease: No Hx Unexplained Bleeding: No - INTEGUMENTARY Hx Dermatological Problems: No Hx Basil Cell: No Hx Eczema: No Hx Melanoma: No Hx Psoriasis: No Hx Squamous Cell: No - MUSCULOSKELETAL/RHEUMATOLOGICAL Hx Musculoskeletal Disorders: Yes Hx Arthritis: Yes Hx Back Pain: No Hx Degenerative Joint Disease: No Hx Falls: Yes Hx Fractures: No Hx Gout: No Hx Herniated Disk: No Hx Myasthenia Gravis: No Hx Osteoarthritis: No Hx Osteomyelitis: No Hx Osteoporosis: No Hx Rhabdomyolysis: No Hx Spinal Stenosis: No Hx Unsteady Gait: Yes - GASTROINTESTINAL Hx Gastrointestinal Disorders: Yes (Hx lower GI bleed) Hx Colostomy: No Hx Crohn's Disease: No Hx Diverticulitis: No Hx Gall Bladder Disease: No Hx Gastroesophageal Reflux: No Hx Ileostomy: No Hx Liver Failure: No Hx Pancreatitis: No HX Swallowing Problems: No Hx Ulcer: No - GENITOURINARY/GYNECOLOGICAL Hx Genitourinary Disorders: Yes Hx Hematuria: No Hx Incontinence: No Hx Prostate Problems: No Hx Sexually Transmitted Disorders: No Hx Urinary Tract Infection: Yes - PSYCHIATRIC Hx Psychophysiologic Disorder: No Hx Anxiety: No Hx Bipolar Disorder: No Hx Depression: No Hx Emotional Abuse: No Hx Hallucinations: No Hx Panic Symptoms: No Hx Paranoia: No Hx Post Traumatic Stress Disorder: No Hx Psychosis: No Hx Physical Abuse: No Hx Schizophrenia: No Hx Sexual Abuse: No Hx Substance Use: No - SURGICAL HISTORY Hx Surgeries: Yes Hx Amputation: No Hx Appendectomy: No Hx Cardiac Catheterization: No Hx Cholecystectomy: Yes Hx Coronary Stent: No Hx Gastric Bypass Surgery: No Hx Hysterectomy: No Hx Joint Replacement: No Hx Kidney Transplant: No Hx Liver Transplant: No Hx Mastectomy: No Hx Musculoskeletal Surgery: No Hx Open Heart Surgery: No Hx Orthopedic Surgery: No Hx Splenectomy: No Hx Valve Replacement: No - ANESTHESIA Hx Anesthesia Reactions: No Hx Malignant Hyperthermia: No Meds Allergies/Adverse Reactions: Allergies Allergy/AdvReac Type Severity Reaction Status Date / Time omeprazole Allergy Severe RASH Verified 02/02/18 10:26 shellfish derived Allergy Severe GI UPSET Verified 02/02/18 10:26 EGG AdvReac Severe NAUSEA Verified 02/02/18 10:20 Physical Exam - Constitutional Appears: Non-toxic, No Acute Distress - Head Exam Additional comments: stapled laceration along left posterior aspect of head, no active bleeding or oozing - Eye Exam Eye Exam: EOMI, Normal appearance. absent: Conjunctival injection, Scleral icterus Pupil Exam: absent: Irregular, Unequal - ENT Exam ENT Exam: Mucous Membranes Moist - Neck Exam Neck exam: Positive for: Full Rom - Respiratory Exam Respiratory Exam: Clear to Auscultation Bilateral, NORMAL BREATHING PATTERN. absent: Accessory Muscle Use, Chest Wall Tenderness, Decreased Breath Sounds, Rales, Rhonchi, Wheezes - Cardiovascular Exam Cardiovascular Exam: Bradycardia, REGULAR RHYTHM, +S1, +S2. absent: Tachycardia, Irregular Rhythm, RRR, +S4 - GI/Abdominal Exam GI & Abdominal Exam: Normal Bowel Sounds, Soft. absent: Diminished Bowel Sounds, Distended, Firm, Hyperactive Bowel Sounds, Hypoactive Bowel Sounds, Rigid, Tenderness - Extremities Exam Extremities exam: Positive for: normal capillary refill, normal inspection, pedal pulses present. Negative for: calf tenderness, pedal edema, tenderness - Back Exam Back exam: absent: CVA tenderness (L), CVA tenderness (R) - Neurological Exam Additional comments: awake and alert, following all commands, moving all extremities spontaneously - Psychiatric Exam Psychiatric exam: Normal Affect, Normal Mood - Skin Skin Exam: Dry, Intact (except as documented in head section above), Warm Results - Vital Signs Recent Vital Signs: Last Vital Signs Temp 98 F 10/15/18 06:00 Pulse 50 L 10/15/18 06:00 Resp 18 10/15/18 06:00 BP 154/68 H 10/15/18 06:00 Pulse Ox 98 10/15/18 06:00 - Labs Result Diagrams: 10/15/18 09:00 10/15/18 09:00 Labs: Laboratory Results - last 24 hr 10/15/18 10/15/18 10/15/18 00:49 00:49 02:58 WBC 11.8 H RBC 3.84 Hgb 11.2 L Hct 34.2 L MCV 89.1 MCH 29.2 MCHC 32.7 RDW 14.8 H Plt Count 233 MPV 10.2 Gran % 82.8 H Lymph % (Auto) 7.6 L [place] % (Auto) 9.1 H Eos % (Auto) 0.3 L Baso % (Auto) 0.2 Gran # 9.78 H Lymph # (Auto) 0.9 L [place] # (Auto) 1.1 H Eos # (Auto) 0.0 Baso # (Auto) 0.02 Sodium 138 Potassium 3.8 Chloride 105 Carbon Dioxide 28 Anion Gap 9 L BUN 19 Creatinine 0.8 Est GFR ( Amer) > 60 Est GFR (Non-Af Amer) > 60 POC Glucose (mg/dL) Random Glucose 137 H Calcium 8.5 Total Bilirubin 0.6 AST 41 ALT 42 Alkaline Phosphatase 83 Total Creatine Kinase 175 NT-Pro-B Natriuret Pep 2380 H Total Protein 6.4 Albumin 3.3 Globulin 3.0 Albumin/Globulin Ratio 1.1 Urine Color Dark yellow Urine Appearance Cloudy Urine pH 6.0 Ur Specific [place] 1.020 Urine Protein Negative Urine Glucose (UA) Negative Urine Ketones Negative Urine Blood Trace-intact H Urine Nitrate Positive H Urine Bilirubin Negative Urine Urobilinogen 2.0 H Ur Leukocyte Esterase Small H Urine RBC 0 - 2 Urine WBC 10 - 15 Ur Epithelial Cells 6 - 8 Urine Bacteria Large Urine Other Mucus 10/15/18 10/15/18 07:38 09:00 WBC 8.6 D RBC 3.51 Hgb 10.2 L Hct 31.2 L MCV 88.9 MCH 29.1 MCHC 32.7 RDW 14.9 H Plt Count 212 MPV 10.7 Gran % 81.3 H Lymph % (Auto) 8.9 L [place] % (Auto) 9.2 H Eos % (Auto) 0.4 L Baso % (Auto) 0.2 Gran # 6.96 H Lymph # (Auto) 0.8 L [place] # (Auto) 0.8 H Eos # (Auto) 0.0 Baso # (Auto) 0.02 Sodium Potassium Chloride Carbon Dioxide Anion Gap BUN Creatinine Est GFR ( Amer) Est GFR (Non-Af Amer) POC Glucose (mg/dL) 90 Random Glucose Calcium Total Bilirubin AST ALT Alkaline Phosphatase Total Creatine Kinase NT-Pro-B Natriuret Pep Total Protein Albumin Globulin Albumin/Globulin Ratio Urine Color Urine Appearance Urine pH Ur Specific [place] Urine Protein Urine Glucose (UA) Urine Ketones Urine Blood Urine Nitrate Urine Bilirubin Urine Urobilinogen Ur Leukocyte Esterase Urine RBC Urine WBC Ur Epithelial Cells Urine Bacteria Urine Other Assessment & Plan - Assessment and Plan (Free Text) Assessment: This is an 87 yo M with PMH of HTN, Afib, PPM placement, COPD, Bladder tumor s/p resection, DM2, and anemia who presents with complaint of fall at home with head trauma, stuck on floor (for approx 6 hrs) unable to stand up again. Etiology of fall is unclear. Patient admitted for monitoring and workup of fall with head trauma, etiology unclear. He is also being worked up for suspected UTI, pending urine cultures and on IV antibiotics. Plan: 1) Fall with head trauma ddx: syncopal episode (arrhythmia vs orthostatic hypotn vs vasovagal) vs mechanical 2/2 deconditioning vs infectious vs hypoglycemic episode vs COPD exacerbation -UA concerning for UTI, started on Rocephin IV, pending Urine Cx for speciation and sensitivities -PT consulted for deconditioning and falls -Cardio consulted for interrogation of pacer, r/o acute arrhythmic event -Normotensive since arrival, hold home anti-hypertensives, less likely hypotensive episode Orthostatic BPs ordered, f/u -Bradycardic to 50's since arrival, baseline per prior charting 60's-70's, holding home anti-arrhythmics -Blood glucose on labs > 100 since arrival, continue to monitor Sliding scale insulin and fingersticks ACHS -No wheezing or decreased breath sounds on exam, no signs/sx consistent with COPD exacerbation currently 2) Suspected UTI -UA concerning for UTI -Rocephin IV daily -pending Urine cx results for speciation/sensitivities 3) Chronic issues -HTN: currently normotensive, holding home antihypertensives -COPD: breathing well, not on tx, albuterol prn -DMII: sliding scale low and fingersticks ACHS -AFib: bradycardic but has PPM, holding antiarrhythmics Dispo: Pending PT and Cardio evals, monitoring HR off antiarrhythmics Ppx: protonix for GI, Heparin for DVT Reviewed and discussed with attending, Dr. Langford <Roderick Langford S - Last Filed: 10/15/18 18:32> Results - Vital Signs Recent Vital Signs: Last Vital Signs Temp 98 F 10/15/18 06:00 Pulse 50 L 10/15/18 14:00 Resp 18 10/15/18 12:00 BP 150/94 H 10/15/18 12:00 Pulse Ox 98 10/15/18 06:00 - Labs Result Diagrams: 10/15/18 09:00 10/15/18 09:00 Labs: Laboratory Results - last 24 hr 10/15/18 10/15/18 10/15/18 00:49 00:49 02:58 WBC 11.8 H RBC 3.84 Hgb 11.2 L Hct 34.2 L MCV 89.1 MCH 29.2 MCHC 32.7 RDW 14.8 H Plt Count 233 MPV 10.2 Gran % 82.8 H Lymph % (Auto) 7.6 L [place] % (Auto) 9.1 H Eos % (Auto) 0.3 L Baso % (Auto) 0.2 Gran # 9.78 H Lymph # (Auto) 0.9 L [place] # (Auto) 1.1 H Eos # (Auto) 0.0 Baso # (Auto) 0.02 Sodium 138 Potassium 3.8 Chloride 105 Carbon Dioxide 28 Anion Gap 9 L BUN 19 Creatinine 0.8 Est GFR ( Amer) > 60 Est GFR (Non-Af Amer) > 60 POC Glucose (mg/dL) Random Glucose 137 H Calcium 8.5 Total Bilirubin 0.6 AST 41 ALT 42 Alkaline Phosphatase 83 Total Creatine Kinase 175 NT-Pro-B Natriuret Pep 2380 H Total Protein 6.4 Albumin 3.3 Globulin 3.0 Albumin/Globulin Ratio 1.1 Urine Color Dark yellow Urine Appearance Cloudy Urine pH 6.0 Ur Specific [place] 1.020 Urine Protein Negative Urine Glucose (UA) Negative Urine Ketones Negative Urine Blood Trace-intact H Urine Nitrate Positive H Urine Bilirubin Negative Urine Urobilinogen 2.0 H Ur Leukocyte Esterase Small H Urine RBC 0 - 2 Urine WBC 10 - 15 Ur Epithelial Cells 6 - 8 Urine Bacteria Large Urine Other Mucus 10/15/18 10/15/18 10/15/18 07:38 09:00 09:00 WBC 8.6 D RBC 3.51 Hgb 10.2 L Hct 31.2 L MCV 88.9 MCH 29.1 MCHC 32.7 RDW 14.9 H Plt Count 212 MPV 10.7 Gran % 81.3 H Lymph % (Auto) 8.9 L [place] % (Auto) 9.2 H Eos % (Auto) 0.4 L Baso % (Auto) 0.2 Gran # 6.96 H Lymph # (Auto) 0.8 L [place] # (Auto) 0.8 H Eos # (Auto) 0.0 Baso # (Auto) 0.02 Sodium 137 Potassium 3.5 L Chloride 105 Carbon Dioxide 27 Anion Gap 9 L BUN 19 Creatinine 0.7 L Est GFR ( Amer) > 60 Est GFR (Non-Af Amer) > 60 POC Glucose (mg/dL) 90 Random Glucose 105 Calcium 8.6 Total Bilirubin AST ALT Alkaline Phosphatase Total Creatine Kinase NT-Pro-B Natriuret Pep Total Protein Albumin Globulin Albumin/Globulin Ratio Urine Color Urine Appearance Urine pH Ur Specific [place] Urine Protein Urine Glucose (UA) Urine Ketones Urine Blood Urine Nitrate Urine Bilirubin Urine Urobilinogen Ur Leukocyte Esterase Urine RBC Urine WBC Ur Epithelial Cells Urine Bacteria Urine Other 10/15/18 10/15/18 11:35 16:47 WBC RBC Hgb Hct MCV MCH MCHC RDW Plt Count MPV Gran % Lymph % (Auto) [place] % (Auto) Eos % (Auto) Baso % (Auto) Gran # Lymph # (Auto) [place] # (Auto) Eos # (Auto) Baso # (Auto) Sodium Potassium Chloride Carbon Dioxide Anion Gap BUN Creatinine Est GFR ( Amer) Est GFR (Non-Af Amer) POC Glucose (mg/dL) 128 H 122 H Random Glucose Calcium Total Bilirubin AST ALT Alkaline Phosphatase Total Creatine Kinase NT-Pro-B Natriuret Pep Total Protein Albumin Globulin Albumin/Globulin Ratio Urine Color Urine Appearance Urine pH Ur Specific [place] Urine Protein Urine Glucose (UA) Urine Ketones Urine Blood Urine Nitrate Urine Bilirubin Urine Urobilinogen Ur Leukocyte Esterase Urine RBC Urine WBC Ur Epithelial Cells Urine Bacteria Urine Other Assessment & Plan - Assessment and Plan (Free Text) Plan: Pt seen and examined. I have reviewed the note of the certified medical technician assistant and agree with it. I have discussed the assessment and plan with the resident. I have reviewed the patient's labs and medications. Pt with fall and laceration on the head with shade in place. He has been having diffuculty in walking. Pt may have a UTI by UA. Will get UCx and start the pt on Abx. The pt had a CT of the pelvis and was found to have a L hip fx. I will get ortho to evaluate the pt. I spoke to the pt's niece. He may need surgery. Cardio has evaluated the pt.
--- NOTE | 2018-10-15 10:54 | RAD ---
PROCEDURE: Radiographs of the pelvis and bilateral hips HISTORY: Posttraumatic left hip pain. COMPARISON: None. FINDINGS: BONES: Pelvis: No visible fracture. Right hip:No fracture identified. Left hip:No fracture identified. JOINTS: Right hip: Moderate degenerative change. Left hip: Symmetrical degenerative change. Sacroiliac Joints: Unremarkable. Pubic symphysis: Unremarkable. SOFT TISSUES: Normal. OTHER FINDINGS: None. IMPRESSION: No acute findings related to/accounting for the clinical presentation. Additional benign and/or incidental findings described above. Concordant results with the preliminary interpretation rendered by the emergency department physician procedure.
--- NOTE | 2018-10-15 10:55 | RAD ---
Date of service: 10/15/2018 HISTORY: Medical clearance COMPARISON: 06/08/2016. TECHNIQUE: Chest PA and lateral FINDINGS: LUNGS: No active pulmonary disease. PLEURA: No significant pleural effusion identified. No pneumothorax apparent. CARDIOVASCULAR: No radiographic findings to suggest acute or significant cardiovascular disease. Atherosclerotic calcifications identified primarily aortic arch. Position/ configuration of pacemaker OSSEOUS STRUCTURES: No significant abnormalities. VISUALIZED UPPER ABDOMEN: Normal. OTHER FINDINGS: None. IMPRESSION: No active disease. No significant interval change compared to the prior examination(s).
[2018-10-15 11:01] LABS: BLOOD UREA NITROGEN 19 mg/dL (7-21); CALCIUM 8.6 mg/dL (8.4-10.5); GFR NON-AFRICAN AMERICAN > 60
[2018-10-15] MEDS: cefTRIAXone 1 gm 1 GM/100 ML BAG IVPB SCH (11:46)
--- NOTE | 2018-10-15 13:49 | CARD ---
APPROVED REPORT Date of service: 10/15/2018 EKG Measurement Heart [id number] <Conclusion> Electronic atrial pacemaker Anterior [place], age unknown NSSTW changes
--- NOTE | 2018-10-15 14:47 | CT ---
Date of service: 10/15/2018 PROCEDURE: CT Pelvis without contrast HISTORY: rule out pelvic fracture COMPARISON: None available. TECHNIQUE: Contiguous axial images of the pelvis . No intravenous or oral contrast given. Coronal and sagittal reformats generated. Radiation dose: Total exam DLP = 325.21 mGy-cm. This CT exam was performed using one or more of the following dose reduction techniques: Automated exposure control, adjustment of the mA and/or kV according to patient size, and/or use of iterative reconstruction technique. FINDINGS: BLADDER: Unremarkable. No mass. REPRODUCTIVE ORGANS: Unremarkable. VISUALIZED BOWEL: Unremarkable. PERITONEUM: Unremarkable, as visualized. No free fluid. No free air. LYMPH NODES: Unremarkable. No enlarged lymph nodes. BONES: Fracture through the greater trochanter of the proximal left femur. Considerable associated soft tissue swelling posterior laterally about the proximal left femur a tests to the acuity of the fracture. VASCULATURE: Atherosclerotic calcification and mural plaque present. Findings are seen throughout the aorta. The aorta remains aneurysmal unchanged compared to the prior study 03/24/2016. OTHER FINDINGS: None. IMPRESSION: Acute, comminuted avulsion fracture of the greater trochanter left femur. Soft tissue swelling attests to the acuity of the fracture. Communication of results: I discussed the findings directly with the nurse (Tarah) involved in the care and management of the patient. This occurred at 14:38. Study completed at 14:17.
--- NOTE | 2018-10-15 16:46 | CARD ---
APPROVED REPORT Date of service: 10/15/2018 EXAM: Two-dimensional and M-mode echocardiogram with Doppler and color Doppler. INDICATION SYNCOPE 2D DIMENSIONS Left Atrium (2D)4.9 (1.6-4.0cm)IVSd1.4 (0.7-1.1cm) LVDd4.1 (3.9-5.9cm)PWd1.4 (0.7-1.1cm) LVDs2.8 (2.5-4.0cm)FS (%) 30.5 % PWs2.2 (0.8-1.2cm)LVEF (%)58.5 (>50%) M-Mode DIMENSIONS Aortic Root3.10 (2.2-3.7cm)Aortic Cusp Exc.1.50 (1.5-2.0cm) Aortic Valve AoV Peak Mvtmpctd984.0cm/sAoV VTI39.7cmAO Peak GR.11mmHg AO Mean GR.6mmHgAI P 1/2 [id number] Mitral Valve MV E Ewmemcnk255.0cm/sMV A Vyvokmdh22.9cm/sE/A ratio3.5 TDI Lateral E' Peak V8.68cm/sMedial E' Peak V6.55cm/sE/Lateral E'13.8 E/Medial E'18.3 Tricuspid Valve TR Peak [id number]/sRAP [id number] Peak Gr.63mmHg [id number] LEFT VENTRICLE The left ventricle is normal size. There is mild concentric left ventricular hypertrophy. The left ventricular function is normal. The left ventricular ejection fraction is within the normal range. There is normal LV segmental wall motion. RIGHT VENTRICLE The right ventricle is normal size. The right ventricular systolic function is normal. There is a pacemaker lead in the right ventricle. ATRIA The left atrium is moderately dilated. The right atrium is severely dilated. A pacemaker is seen in the right atrium consistent with history. The interatrial septum is intact with no evidence for an atrial septal defect. AORTIC VALVE The aortic valve is moderately thickened. There is mild aortic regurgitation. There is no aortic valvular stenosis. MITRAL VALVE Mitral annular calcification is moderate. Mitral regurgitation is mild. TRICUSPID VALVE The tricuspid valve is normal in structure. There is moderate tricuspid regurgitation. There is moderate to severe pulmonary hypertension. PULMONIC VALVE The pulmonary valve is normal in structure. GREAT VESSELS The aortic root is normal in size. The IVC is normal in size and collapses >50% with inspiration. PERICARDIAL EFFUSION There is no pleural effusion. There is a small loculated anterior pericardial effusion. <Conclusion> Biatrial enlargement. Mild concentric LVH. Normal LV size and systolic function. Mild AI. Moderate TR. Moderate to severe pulmonary HTN. Mild MR. Small anterior pericardial effusion . Pacing leads seen RV and RA.
[2018-10-15] MEDS ORDERED: Dextrose 50% SYRINGE Inj (50 ml) IV PRN (17:26)
--- NOTE | 2018-10-15 19:27 | CON ---
DATE OF CONSULTATION: 10/15/2018 REFERRING PHYSICIAN: Kenya Boles MD REASON FOR CONSULTATION: Recent fall, possible syncope. HISTORY: This is an 87-year-old man, well known to us with a history of atrial fibrillation and aortic stenosis, as well as coronary artery disease, who has undergone prior left atrial occlusion device placement and permanent pacemaker implant. The patient was at home yesterday and developed gait imbalance and fell to the floor striking his head on furniture. He cannot recall if he lost consciousness. He was unable to get up and was lying on the floor for approximately 5 hours. He was ultimately brought to the emergency room and several sutures were placed and he is now on telemetry. He is unaware of any palpitations. He denies any prior cardiac syncope. He is not on anticoagulant therapy because of recurrent major GI bleeding. PAST HISTORY: Notable for the problems mentioned above. He has a history of COPD, diabetes, chronic anemia and prior bladder tumor. He has undergone a prior laparoscopic cholecystectomy as well. FAMILY HISTORY: Both parents are from age-related illness. Sister from lung cancer. SOCIAL HISTORY: He does not smoke or drink. He is and lives alone. CURRENT MEDICATIONS: Rocephin and eyedrops. ALLERGIES: HE HAS REPORTED ALLERGY TO OMEPRAZOLE IN THE PAST. REVIEW OF SYSTEMS: A 10-point review of systems is otherwise unremarkable. PHYSICAL EXAMINATION: GENERAL: He is a somewhat frail-appearing very elderly man. VITAL SIGNS: His blood pressure is 154/68 with a pulse of 50 with atrial pacing, respirations are 14, and he is afebrile. HEENT: A laceration as noted on his upper scalp. No JVD is noted. CHEST: Few scattered rhonchi heard. HEART: PMI displaced laterally with systolic murmur present in the left sternal border. ABDOMEN: Soft and nontender with normoactive bowel sounds. EXTREMITIES: No clubbing, cyanosis, edema. Positive arthritic changes are noted. SKIN: Warm and dry. PSYCHIATRIC: Normal mood and affect. DIAGNOSTIC DATA: Potassium 3.8, BUN and creatinine 19 and 0.8, glucose 137. White count 11.8, hemoglobin and hematocrit 11.2 and 34.2 with platelet count of 233,000. BNP is 2380. Electrocardiogram reveals an atrial paced rhythm. Chest x-ray reveals mildly enlarged cardiac silhouette with a dual-chamber pacemaker system in place and aortic calcification noted. Lung roque are clear. IMPRESSION: 1. Recent fall, unclear if this was due to syncope. 2. Chronic atrial fibrillation, not anticoagulated because of high bleeding risk status post left atrial occlusion. 3. Mild anemia. 4. Rest of the problems as noted. RECOMMENDATIONS: Telemetry monitoring will be continued for now. An echocardiogram will be obtained. Repeat pacemaker interrogation will be performed to verify normal function; however, it is likely that that is fairly low. If he has recurrent falls, possible placement into a safer environment may be necessary. Thank you for this consultation. I will be happy to follow along with you throughout his hospital course. Malachi Leonardo MD
[2018-10-15] MEDS: Insulin Lispro (humaLOG) LOW Coverage SC SCH (22:13)
--- NOTE | 2018-10-16 04:19 | CON ---
DATE: 10/15/2018 HISTORY OF PRESENT ILLNESS: The patient is an 87-year-old male slipped and fell yesterday at home, ended up lying on the floor for 5 hours before he got help, came to the emergency room, was admitted today to the hospital for evaluation of his left hip pain where he fell. X-ray showed laterally displaced avulsion fracture at the tip of the left greater trochanter, which is not a structural fracture for weightbearing, so he can put weight on the hip as the CAT scan and the plain x-rays do not show an intertrochanteric fracture and he can move the hip quite comfortably, so I will order therphy and ambulate with a walker and since he lives alone he should consider going to a subacute rehab close to the nearest family member which is a niece who lives near [place]. FINAL DIAGNOSIS: Stable left hip fracture at the greater trochanter and no surgery needed, just therapy technique to maintain the strength and coordination and to ambulate with a walker, weightbearing to tolerance. Florentino Soria DO [facility]OU
[2018-10-16] MEDS: Pantoprazole 40 mg EC Tab PO SCH (07:20)
--- NOTE | 2018-10-16 08:04 | PN ---
DATE: 10/16/2018 SUBJECTIVE: The patient is seen lying in bed on telemetry. His only complaint in his left hip pain. He denies any recurrent dizziness. Pacemaker interrogation revealed normal function. MEDICATIONS: His current medications include Ditropan, subcutaneous heparin, Protonix, Rocephin. OBJECTIVE: GENERAL: He is a very elderly man who appears mildly uncomfortable because of hip pain. VITAL SIGNS: Blood pressure 150/60 with pulse of 50 with atrial pacing, respirations 16. He is afebrile. HEENT: No JVD. CHEST: Few scattered rhonchi heard. HEART: PMI displaced laterally with a systolic murmur noted at the lower left sternal border. ABDOMEN: Soft, nontender, normoactive bowel sounds. EXTREMITIES: No edema. DIAGNOSTIC DATA: Morning blood work is pending. His echocardiogram reveals biatrial enlargement with normal LV size and systolic function, mild concentric LVH, moderate tricuspid regurgitation as well as moderate to severe pulmonary hypertension with RVSP of [address] of the pelvis revealed an acute comminuted avulsion fracture of the greater trochanter of the left femur. IMPRESSION: 1. Recent fall, no clear evidence of syncope, likely due to gait imbalance. 2. Apparent acute hip fracture. 3. History of atrial fibrillation. 4. Pulmonary hypertension. RECOMMENDATIONS: Current cardiac medication management should continue. A surgical repair of his hip is necessary. He is at least moderately increased risk given his advanced age and valvular heart disease and evidence of pulmonary hypertension. He remains off oral anticoagulation because of recurrent major GI bleeds and did undergo left atrial occlusion device placement several years ago. We will continue to follow and make further recommendations as appropriate. Malachi Leonardo MD MTDD
[2018-10-16] MEDS: Multivitamin With Minerals Tab PO SCH (09:40)
[2018-10-16] MEDS: Cholecalciferol 1,000 INTLU TAB PO SCH (09:41)
[2018-10-16] MEDS: cefTRIAXone 1 gm 1 GM/100 ML BAG IVPB SCH (09:42)
[2018-10-16] MEDS: Insulin Lispro (humaLOG) LOW Coverage SC SCH ×3 (09:43→21:34)
--- NOTE | 2018-10-16 13:14 | PN ---
DATE: 10/16/2018 HISTORY OF PRESENT ILLNESS: Mr. De La Rosa is an 87-year-old male admitted to the hospital with syncope. He fell at home with head trauma. CT of head unremarkable. CT of pelvis showed left trochanteric avulsion fracture. He has a history of hypertension, atrial fibrillation, COPD. Blood count showed leukocytosis and anemia. UA is mildly positive. He is able to ambulate but complaining of pain on the left side of the hip. He also developed laceration of the scalp. PAST MEDICAL HISTORY: 1. History of bladder cancer status post resection. 2. Diabetes mellitus type 2. 3. Chronic anemia. 4. Atrial fibrillation. 5. Hypertension. 6. Pacemaker placement. FAMILY HISTORY: Noncontributory. SOCIAL HISTORY: Sister had lung cancer. PAST SURGICAL HISTORY: Cholecystectomy. ALLERGIES: OMEPRAZOLE, SHELLFISH AND EGG. REVIEW OF SYSTEMS: As per HPI. Rest of 12-point review of systems reviewed and negative. PHYSICAL EXAMINATION: GENERAL: Comfortable in bed, in no acute distress. VITAL SIGNS: Temperature 98, heart rate 50 per minute, respiratory rate 18 per minute, blood pressure 160/60, pulse ox is 98% on room air. HEENT: No pallor. NECK: No lymphadenopathy. CHEST: Air entry present and equal bilaterally. No added sound. CARDIOVASCULAR: S1, S2 normal. No murmur. No gallop. ABDOMEN: Soft, nontender. No hepatosplenomegaly. EXTREMITIES: No edema. CENTRAL NERVOUS SYSTEM: Alert and oriented x3. No focal sensory motor deficit. LABORATORY DATA: White count 8.6, hemoglobin 10.2, hematocrit 31.2, platelets 212,000. Sodium 137, potassium 3.5, BUN 19, creatinine 0.7. UA positive, leukocyte esterase positive. CT pelvis, as per HPI. ASSESSMENT: 1. Syncope. 2. Left trochanteric fracture. 3. Chronic obstructive pulmonary disease. 4. Atrial fibrillation. 5. Hypertension. 6. Diabetes mellitus type 2. 7. History of bladder cancer in remission. PLAN: He is able to ambulate with support. Complaining of pain during ambulation. We will give Percocet as needed. He is on ceftriaxone 1 g daily, we will continue that until urine culture is negative. TCU evaluation requested. Heparin 5000 units subcutaneous every 12 for DVT prophylaxis, insulin as per sliding scale. Discussed with the family at bedside. Discussed with the patient. He agreed with the TCU evaluation. Rain Diallo MD [facility]
[2018-10-17] MEDS: Pantoprazole 40 mg EC Tab PO SCH (05:39)
[2018-10-17] MEDS: cefTRIAXone 1 gm 1 GM/100 ML BAG IVPB SCH (09:28)
[2018-10-17] MEDS: Insulin Lispro (humaLOG) LOW Coverage SC SCH ×4 (09:29→21:44)
[2018-10-17] MEDS: Cholecalciferol 1,000 INTLU TAB PO SCH (09:29)
[2018-10-17] MEDS: Multivitamin With Minerals Tab PO SCH (09:45)
[2018-10-17] MEDS: POLYETHYLENE GLYCOL 3350 17 GM/Dose PACKET PO SCH (09:48)
[2018-10-17 11:32] LABS: BASO # 0.03 K/mm3 (0.0-2.0); BASO % 0.4 % (0.0-3.0); EOS # 0.1 (0.0-0.7); EOS % 1.8 % (1.5-5.0); GRAN # 5.44 (1.4-6.5); LYMPH # 0.9 (1.2-3.4); LYMPH % 13.1 % (22.0-35.0); MEAN CELL VOLUME 89.8 fl (80.0-105.0); MEAN CORPUSCULAR HEMOGLOBIN 29.7 pg (25.0-35.0); MEAN CORPUSCULAR HGB CONC 33.1 g/dl (31.0-37.0); MEAN PLATELET VOLUME 10.1 fl (7.0-11.0); MONO # 0.6 (0.1-0.6); MONO % 8.7 % (1.0-6.0); RBC 3.03 10^6/uL (3.5-6.1); RED CELL DISTRIBUTION WIDTH 15.3 % (11.5-14.5); WHITE BLOOD COUNT 7.2 10^3/uL (4.5-11.0)
[2018-10-17 11:45] LABS: ALBUMIN 2.9 g/dL (3.0-4.8); ALT/SGPT 38 U/L (7-56); AST/SGOT 33 U/L (17-59); BLOOD UREA NITROGEN 22 mg/dL (7-21); CALCIUM 8.5 mg/dL (8.4-10.5); GFR NON-AFRICAN AMERICAN > 60; URIC ACID 3.8 mg/dL (3.5-8.5)
--- NOTE | 2018-10-17 11:57 | CP.PCM.PCO ---
Physician Communication Note - Physician Communication Note Physician Communication Note: patient is medically cleared for D/C to [facility]
--- NOTE | 2018-10-17 14:23 | CP.PCM.CON ---
History of Present Illness - History of Present Illness History of Present Illness: Palliative consult requested by Dr Ignacio Langford Reason: Goals of care 87 year old male with history of A Fib, pacemaker placement and syncope who is presented after tripping and suffering a fall at home. He hit his head causing laceration requiring sutures. He did not recall loss of consciousness. He was unable to get get up and remained on the floor for about 5 hours before help arrived. He denied chest pain, nausea, vomiting, fever, chills ,diarrhea or dizziness. EKG: pacemaker, anterior wall RI ,age undetermined. NS St/T wave changes. ECHO: Mild concentric LVH, normal LV size, mild AI, moderate TR, moderate to severe pulmonary HTN, small anterior pericardial effusion, pacing Chest X Ray: No acute disease Pelvis /Bilateral x ray: Negative Pelvis CT : acute , comminuted avulsion fracture of greater trochanter left femur, soft tissue swelling. Head CT: No acute findings Labs: Wbc 11.8, Hgb 11.2, Plt 233,Na 138, K 3.8, Bun 19, Sky Diver 0.8, glucose 137, Ast 41, Alt 42, BNP 2380, albumin 3.3. Urine + nitrate PMHx:CAD, A Fib, left atrial occlusion,GI bleed, gait dysfunction. PSHx:permanent pacemaker placement Social History: Non smoker, no alcohol or drug misuse. Lives independently. Family History: Parents > age related. Sister >lung cancer Advance Care Planning: he does not have an Advanced Directive Review of Systems: As per HPI, 12 pint review otherwise negative Past Patient History - Infectious Disease Hx of Infectious Diseases: None - Tetanus Immunizations Tetanus Immunization: Unknown - Past Social History Smoking Status: Former Smoker - CARDIAC Hx Cardiac Disorders: Yes (Pacemaker, Afib) Hx Congestive Heart Failure: Yes Hx Hypertension: Yes - PULMONARY Hx Respiratory Disorders: Yes Hx Asthma: No Hx Bronchitis: Yes Hx Chronic Obstructive Pulmonary Disease (COPD): Yes Hx Emphysema: No Hx Pneumonia: No Hx Respiratory Aspiration: No Hx Respiratory Tract Infection: No Hx Sleep Apnea: No Hx Tuberculosis: No - NEUROLOGICAL Hx Neurological Disorder: No Hx Alzheimer's Disease: No HX Cerebrovascular Accident: No Hx Dementia: No Hx Dizziness: No Hx Meningitis: No Hx Migraine: No Hx Parkinson's Disease: No Hx Seizures: No Hx Transient Ischemic Attacks (TIA): No - HEENT Hx HEENT Problems: Yes Hx Blind: No Hx Cataracts: Yes Hx Deafness: Yes Hx Difficulty Chewing: No Hx Epistaxis: No Hx Glaucoma: No Hx Macular Degeneration: No Other/Comment: wears glasses - RENAL Hx Chronic Kidney Disease: No Hx Dialysis: No Hx Kidney Stones: No Hx Neurogenic Bladder: No Hx Pyelonephritis: No Hx Renal (Kidney) Cancer: No Hx Renal Failure: No - ENDOCRINE/METABOLIC Hx Diabetes Mellitus Type 2: Yes - HEMATOLOGICAL/ONCOLOGICAL Hx Blood Disorders: No Hx AIDS: No Hx Anemia: No Hx Cancer: No Hx Chemotherapy: No Hx Cirrhosis: No Hx Hemophilia: No Hx Hepatitis A: No Hx Hepatitis B: No Hx Hepatitis C: No Hx Human Immunodeficiency Virus (HIV): No Hx Metastesis: No Hx Shingles: No Hx Sickle Cell Disease: No Hx Unexplained Bleeding: No - INTEGUMENTARY Hx Dermatological Problems: No Hx Basil Cell: No Hx Eczema: No Hx Melanoma: No Hx Psoriasis: No Hx Squamous Cell: No - MUSCULOSKELETAL/RHEUMATOLOGICAL Hx Musculoskeletal Disorders: Yes Hx Arthritis: Yes Hx Back Pain: No Hx Degenerative Joint Disease: No Hx Falls: Yes Hx Fractures: No Hx Gout: No Hx Herniated Disk: No Hx Myasthenia Gravis: No Hx Osteoarthritis: No Hx Osteomyelitis: No Hx Osteoporosis: No Hx Rhabdomyolysis: No Hx Spinal Stenosis: No Hx Unsteady Gait: Yes - GASTROINTESTINAL Hx Gastrointestinal Disorders: Yes (Hx lower GI bleed) Hx Colostomy: No Hx Crohn's Disease: No Hx Diverticulitis: No Hx Gall Bladder Disease: No Hx Gastroesophageal Reflux: No Hx Ileostomy: No Hx Liver Failure: No Hx Pancreatitis: No HX Swallowing Problems: No Hx Ulcer: No - GENITOURINARY/GYNECOLOGICAL Hx Genitourinary Disorders: Yes Hx Hematuria: No Hx Incontinence: No Hx Prostate Problems: No Hx Sexually Transmitted Disorders: No Hx Urinary Tract Infection: Yes - PSYCHIATRIC Hx Psychophysiologic Disorder: No Hx Anxiety: No Hx Bipolar Disorder: No Hx Depression: No Hx Emotional Abuse: No Hx Hallucinations: No Hx Panic Symptoms: No Hx Paranoia: No Hx Post Traumatic Stress Disorder: No Hx Psychosis: No Hx Physical Abuse: No Hx Schizophrenia: No Hx Sexual Abuse: No Hx Substance Use: No - SURGICAL HISTORY Hx Surgeries: Yes Hx Amputation: No Hx Appendectomy: No Hx Cardiac Catheterization: No Hx Cholecystectomy: Yes Hx Coronary Stent: No Hx Gastric Bypass Surgery: No Hx Hysterectomy: No Hx Joint Replacement: No Hx Kidney Transplant: No Hx Liver Transplant: No Hx Mastectomy: No Hx Musculoskeletal Surgery: No Hx Open Heart Surgery: No Hx Orthopedic Surgery: No Hx Splenectomy: No Hx Valve Replacement: No - ANESTHESIA Hx Anesthesia Reactions: No Hx Malignant Hyperthermia: No Meds Allergies/Adverse Reactions: Allergies Allergy/AdvReac Type Severity Reaction Status Date / Time omeprazole Allergy Severe RASH Verified 02/02/18 10:26 shellfish derived Allergy Severe GI UPSET Verified 02/02/18 10:26 EGG AdvReac Severe NAUSEA Verified 02/02/18 10:20 - Medications Medications: Current Medications Acetaminophen (Tylenol 325mg Tab) 650 mg PO Q4H PRN PRN Reason: Pain, Mild (1-3) Last Admin: 10/17/18 11:04 Dose: 650 mg Cefpodoxime Proxetil (Vantin) 200 mg PO Q12 [facility] Cholecalciferol (Vitamin D) 2,000 intlu PO DAILY [facility] Last Admin: 10/17/18 09:29 Dose: 2,000 intlu Dextrose (Dextrose 50% Inj) 0 ml IV STAT PRN; Protocol PRN Reason: Hypoglycemia Protocol Heparin Sodium (Porcine) (Heparin) 5,000 units SC Q12 [facility]; Protocol Last Admin: 10/17/18 09:29 Dose: 5,000 units Dextrose (Dextrose 5% In Water 1000 Ml) 1,000 mls @ 0 mls/hr IV .Q0M PRN; Protocol PRN Reason: Hypoglycemia Protocol Insulin Human Lispro (Humalog Low) 0 units SC ACHS [facility]; Protocol Last Admin: 10/17/18 12:27 Dose: 1 unit Multivitamins/Minerals (Therapeutic-M Tab) 1 tab PO DAILY [facility] Last Admin: 10/17/18 09:45 Dose: 1 tab Oxybutynin Chloride (Ditropan Tab) 10 mg PO DAILY [facility] Last Admin: 10/17/18 09:28 Dose: 10 mg Pantoprazole Sodium (Protonix Ec Tab) 40 mg PO 0600 [facility] Last Admin: 10/17/18 05:39 Dose: 40 mg Polyethylene Glycol (Miralax) 17 gm PO DAILY [facility] Last Admin: 10/17/18 09:48 Dose: 17 gm Physical Exam - Constitutional Appears: No Acute Distress, Chronically Ill - Head Exam Head Exam: NORMOCEPHALIC Additional comments: laceraion upper scalp - Eye Exam Eye Exam: Normal appearance, PERRL - ENT Exam ENT Exam: Mucous Membranes Moist, Normal Oropharynx - Neck Exam Neck exam: Positive for: Normal Inspection - Respiratory Exam Respiratory Exam: Clear to Auscultation Bilateral, NORMAL BREATHING PATTERN - Cardiovascular Exam Cardiovascular Exam: Irregular Rhythm, +S1, +S2 - GI/Abdominal Exam GI & Abdominal Exam: Normal Bowel Sounds, Soft Additional comments: no tenderness - Extremities Exam Extremities exam: Positive for: normal capillary refill, normal inspection Additional comments: left upper thigh tenderness /swelling - Back Exam Back exam: NORMAL INSPECTION - Neurological Exam Neurological exam: Alert, Oriented x3 - Skin Skin Exam: Dry, Pallor, Warm - Additional Findings Additional findings: Palliative performance scale rating 50% Results - Vital Signs Recent Vital Signs: Last Vital Signs Temp 98.9 F 10/17/18 12:00 Pulse 62 10/17/18 12:00 Resp 20 10/17/18 12:00 BP 117/56 L 10/17/18 12:00 Pulse Ox 96 10/17/18 10:00 - Labs Result Diagrams: 10/17/18 11:20 10/17/18 11:20 Labs: Laboratory Results - last 24 hr 10/16/18 10/16/18 10/17/18 17:12 21:23 07:37 WBC RBC Hgb Hct MCV MCH MCHC RDW Plt Count MPV Gran % Lymph % (Auto) Tyrrell % (Auto) Eos % (Auto) Baso % (Auto) Gran # Lymph # (Auto) Tyrrell # (Auto) Eos # (Auto) Baso # (Auto) Sodium Potassium Chloride Carbon Dioxide Anion Gap BUN Creatinine Est GFR ( Amer) Est GFR (Non-Af Amer) POC Glucose (mg/dL) 139 H 119 H 93 Random Glucose Uric Acid Calcium Phosphorus Magnesium Total Bilirubin AST ALT Alkaline Phosphatase Total Protein Albumin Globulin Albumin/Globulin Ratio 10/17/18 10/17/18 10/17/18 11:20 11:20 12:00 WBC 7.2 RBC 3.03 L Hgb 9.0 L Hct 27.2 L MCV 89.8 MCH 29.7 MCHC 33.1 RDW 15.3 H Plt Count 169 MPV 10.1 Gran % 76.0 H Lymph % (Auto) 13.1 L Tyrrell % (Auto) 8.7 H Eos % (Auto) 1.8 Baso % (Auto) 0.4 Gran # 5.44 Lymph # (Auto) 0.9 L Tyrrell # (Auto) 0.6 Eos # (Auto) 0.1 Baso # (Auto) 0.03 Sodium 136 Potassium 4.5 Chloride 103 Carbon Dioxide 30 Anion Gap 7 L BUN 22 H Creatinine 1.0 Est GFR ( Amer) > 60 Est GFR (Non-Af Amer) > 60 POC Glucose (mg/dL) 165 H Random Glucose 153 H Uric Acid 3.8 Calcium 8.5 Phosphorus 3.7 Magnesium 2.0 Total Bilirubin 0.4 AST 33 ALT 38 Alkaline Phosphatase 70 Total Protein 5.7 L Albumin 2.9 L Globulin 2.9 Albumin/Globulin Ratio 1.0 L Assessment & Plan - Assessment and Plan (Free Text) Assessment: 87 year old male with history of A Fib, anemia, pacemaker placement who was admitted after suffering fall at home with scalp injury, comminuted avulsion fracture of greater trochanter left femur and gait dysfunction. The patient is alert an oriented. He asked to speak with me about advance care planning He does not have an Advanced Directive or assigned health care surrogate> He is very close with his niece, Savannah Conway , who is at bedside. Benefits and burdens of resuscitation with CPR/intubation explained. Questions answered. The patient wants to think thing through before deciding about resuscitation efforts. He does intend to designate his niece and cousin as health care surrogates. Directive paperwork explained to him and his niece. The patient will review paperwork and get back to me when ready to execute document Time spent with patient in goals of care and advance care planning, 30 minutes Plan: Goals of care and advance care planning left femur fracture/deconditioning: PT/OT, [facility] Cardiology following; Chronic a Fib not on anti coagulation therapy at high risk for bleeding.Pacemaker functioning adequately
[2018-10-18 00:14] VITALS: RESP 20
[2018-10-18] MEDS: Pantoprazole 40 mg EC Tab PO SCH (05:34)
[2018-10-18 05:56] VITALS: BP 169/64; PULSE 60; TEMP 98.2; O2SAT 95
[2018-10-18] MEDS: Cholecalciferol 1,000 INTLU TAB PO SCH (09:35)
[2018-10-18] MEDS: Multivitamin With Minerals Tab PO SCH (09:35)
[2018-10-18] MEDS: Insulin Lispro (humaLOG) LOW Coverage SC SCH (09:35)
[2018-10-18] MEDS: POLYETHYLENE GLYCOL 3350 17 GM/Dose PACKET PO SCH (09:35)
[2018-10-18] MEDS ORDERED: Cefpodoxime (Vantin) 200 mg Tab PO SCH (10:00)
--- NOTE | 2018-10-19 23:09 | CP.PCM.DIS ---
Provider - Provider Date of Admission: 10/15/18 10:46 Attending physician: Roderick Lanfgord MD Primary care physician: José Miguel Young MD Time Spent in preparation of Discharge (in minutes): 55 Hospital Course - Lab Results Lab Results: Micro Results 10/17/18 17:11 Urine Urine Culture - Final No Growth (<1,000 CFU/ML) 10/15/18 02:55 Urine,Clean Catch Urine Culture - Final Escherichia Coli Most Recent Lab Values WBC 7.2 10^3/uL (4.5-11.0) 10/17/18 11:20 RBC 3.03 10^6/uL (3.5-6.1) L 10/17/18 11:20 Hgb 9.0 g/dL (14.0-18.0) L 10/17/18 11:20 Hct 27.2 % (42.0-52.0) L 10/17/18 11:20 MCV 89.8 fl (80.0-105.0) 10/17/18 11:20 MCH 29.7 pg (25.0-35.0) 10/17/18 11:20 MCHC 33.1 g/dl (31.0-37.0) 10/17/18 11:20 RDW 15.3 % (11.5-14.5) H 10/17/18 11:20 Plt Count 169 10^3/uL (120.0-450.0) 10/17/18 11:20 MPV 10.1 fl (7.0-11.0) 10/17/18 11:20 Gran % 76.0 % (50.0-68.0) H 10/17/18 11:20 Lymph % (Auto) 13.1 % (22.0-35.0) L 10/17/18 11:20 [place]royo % (Auto) 8.7 % (1.0-6.0) H 10/17/18 11:20 Eos % (Auto) 1.8 % (1.5-5.0) 10/17/18 11:20 Baso % (Auto) 0.4 % (0.0-3.0) 10/17/18 11:20 Gran # 5.44 (1.4-6.5) 10/17/18 11:20 Lymph # (Auto) 0.9 (1.2-3.4) L 10/17/18 11:20 [place] # (Auto) 0.6 (0.1-0.6) 10/17/18 11:20 Eos # (Auto) 0.1 (0.0-0.7) 10/17/18 11:20 Baso # (Auto) 0.03 K/mm3 (0.0-2.0) 10/17/18 11:20 Sodium 136 mmol/L (132-148) 10/17/18 11:20 Potassium 4.5 mmol/L (3.6-5.0) 10/17/18 11:20 Chloride 103 mmol/L (98-107) 10/17/18 11:20 Carbon Dioxide 30 mmol/L (21-33) 10/17/18 11:20 Anion Gap 7 (10-20) L 10/17/18 11:20 BUN 22 mg/dL (7-21) H 10/17/18 11:20 Creatinine 1.0 mg/dl (0.8-1.5) 10/17/18 11:20 Est GFR ( Amer) > 60 10/17/18 11:20 Est GFR (Non-Af Amer) > 60 10/17/18 11:20 POC Glucose (mg/dL) 92 mg/dL (65-110) 10/18/18 07:22 Random Glucose 153 mg/dL (70-110) H 10/17/18 11:20 Uric Acid 3.8 mg/dL (3.5-8.5) 10/17/18 11:20 Calcium 8.5 mg/dL (8.4-10.5) 10/17/18 11:20 Phosphorus 3.7 mg/dL (2.5-4.5) 10/17/18 11:20 Magnesium 2.0 mg/dL (1.7-2.2) 10/17/18 11:20 Total Bilirubin 0.4 mg/dL (0.2-1.3) 10/17/18 11:20 AST 33 U/L (17-59) 10/17/18 11:20 ALT 38 U/L (7-56) 10/17/18 11:20 Alkaline Phosphatase 70 U/L (38-126) 10/17/18 11:20 Total Creatine Kinase 175 U/L (35-230) 10/15/18 00:49 NT-Pro-B Natriuret Pep 2380 pg/mL (0-450) H 10/15/18 00:49 Total Protein 5.7 g/dL (5.8-8.3) L 10/17/18 11:20 Albumin 2.9 g/dL (3.0-4.8) L 10/17/18 11:20 Globulin 2.9 gm/dL 10/17/18 11:20 Albumin/Globulin Ratio 1.0 (1.1-1.8) L 10/17/18 11:20 Urine Color Dark yellow (YELLOW) 10/15/18 02:58 Urine Appearance Cloudy (CLEAR) 10/15/18 02:58 Urine pH 6.0 (4.7-8.0) 10/15/18 02:58 Ur Specific [place] 1.020 (1.005-1.035) 10/15/18 02:58 Urine Protein Negative mg/dL (<30 mg/dL) 10/15/18 02:58 Urine Glucose (UA) Negative mg/dL (NEGATIVE) 10/15/18 02:58 Urine Ketones Negative mg/dL (NEGATIVE) 10/15/18 02:58 Urine Blood Trace-intact (NEGATIVE) H 10/15/18 02:58 Urine Nitrate Positive (NEGATIVE) H 10/15/18 02:58 Urine Bilirubin Negative (NEGATIVE) 10/15/18 02:58 Urine Urobilinogen 2.0 E.U./dL (<1 E.U./dL) H 10/15/18 02:58 Ur Leukocyte Esterase Small Sherman/uL (NEGATIVE) H 10/15/18 02:58 Urine RBC 0 - 2 /hpf (0-2) 10/15/18 02:58 Urine WBC 10 - 15 /hpf (0-6) 10/15/18 02:58 Ur Epithelial Cells 6 - 8 /hpf (0-5) 10/15/18 02:58 Urine Bacteria Large (NEG) 10/15/18 02:58 Urine Other Mucus 10/15/18 02:58 - Hospital Course Hospital Course: 1. Syncope. 2. Left trochanteric fracture. 3. Chronic obstructive pulmonary disease. 4. Atrial fibrillation. 5. Hypertension. 6. Diabetes mellitus type 2. 7. History of bladder cancer in remission. Mr. De La Rosa is an 87-year-old male admitted to the hospital with syncope. He fell at home with head trauma. CT of head unremarkable. CT of pelvis showed left trochanteric avulsion fracture. Evaluated by ortho, no surgical intervention needed. He has a history of hypertension, atrial fibrillation, COPD. Blood count showed leukocytosis and anemia. UA is mildly positive. He is able to ambulate but complaining of pain on the left side of the hip. He also developed laceration of the scalp. PHYSICAL EXAMINATION: GENERAL: Comfortable in bed, in no acute distress. VITAL SIGNS: Temperature 96, heart rate 56 per minute, respiratory rate 18 per minute, blood pressure 160/60, pulse ox is 98% on room air. HEENT: No pallor. NECK: No lymphadenopathy. CHEST: Air entry present and equal bilaterally. No added sound. CARDIOVASCULAR: S1, S2 normal. No murmur. No gallop. ABDOMEN: Soft, nontender. No hepatosplenomegaly. EXTREMITIES: No edema. CENTRAL NERVOUS SYSTEM: Alert and oriented x3. No focal sensory motor deficit. LABORATORY DATA: White count 8.6, hemoglobin 10.2, hematocrit 31.2, platelets 212,000. Sodium 137, potassium 3.5, BUN 19, creatinine 0.7. UA positive, leukocyte esterase positive. condition on discharge : stable. Dispo : rehab. Meds : continue all current meds. list given to transport. Rain Diallo MD - Date & Time of H&P Date of H&P: 10/18/18 Time of H&P: 11:00 Discharge Exam - Head Exam Head Exam: NORMOCEPHALIC Discharge Plan - Follow Up Plan Condition: STABLE Disposition: HOME/ ROUTINE Instructions: Heart Healthy Diet, Preventing Falls in the Older Adult, Hip Pain (DC), B-Type Natriuretic Peptide Blood Test, Weakness (GEN) Additional Instructions: Take all medications as prescribed. Follow up with your primary care physician upon arrival at the SubAcute Rehab facility.
== END 2018-10-18 11:26 | DRG 536 ==
LOC: ED 23:54 → ERH 10-15 03:02 → 2RNO 10-15 05:01 → OBSVTOIN 10-15 10:46
PROVIDERS: ADMIT Internal Medicine Nephrology; ATTEND Internal Medicine Nephrology
PROC: 3E0234Z Introduction of Serum, Toxoid and Vaccine into Muscle, Percutaneous Approach (ICD-10-PCS; principal; 2018-10-15)
DX: S72.112A Displaced fracture of greater trochanter of left femur, initial encounter for closed fracture (principal); I31.3 Pericardial effusion (noninflammatory); R55 Syncope and collapse; J44.9 Chronic obstructive pulmonary disease, unspecified; I48.2 Chronic atrial fibrillation; I11.0 Hypertensive heart disease with heart failure; E11.9 Type 2 diabetes mellitus without complications; Z85.51 Personal history of malignant neoplasm of bladder; D64.9 Anemia, unspecified; D72.829 Elevated white blood cell count, unspecified; E78.00 Pure hypercholesterolemia, unspecified; H40.9 Unspecified glaucoma; H91.90 Unspecified hearing loss, unspecified ear; I25.10 Atherosclerotic heart disease of native coronary artery without angina pectoris; I27.20 Pulmonary hypertension, unspecified; I35.0 Nonrheumatic aortic (valve) stenosis; I50.9 Heart failure, unspecified; S01.01XA Laceration without foreign body of scalp, initial encounter; W01.0XXA Fall on same level from slipping, tripping and stumbling without subsequent striking against object, initial encounter; Y92.009 Unspecified place in unspecified non-institutional (private) residence as the place of occurrence of the external cause; Z87.440 Personal history of urinary (tract) infections; Z87.891 Personal history of nicotine dependence; Z90.49 Acquired absence of other specified parts of digestive tract; Z95.0 Presence of cardiac pacemaker; Z80.1 Family history of malignant neoplasm of trachea, bronchus and lung; I25.2 Old myocardial infarction; Z88.8 Allergy status to other drugs, medicaments and biological substances; Z91.013 Allergy to seafood; Z91.012 Allergy to eggs; Z23 Encounter for immunization

== ENCOUNTER 2018-11-24 16:30 | Emergency (ER) | payer MEDICARE, BC ==
[2018-11-24 16:44] VITALS: BMI 25.9
[2018-11-24 16:51] VITALS: RESP 18
--- NOTE | 2018-11-24 17:42 | ED PDOC ---
Arrival/HPI - General Chief Complaint: Upper Extremity Problem/Injury Time Seen by Provider: 11/24/18 16:46 Historian: Patient - History of Present Illness Narrative History of Present Illness (Text): 11/24/18 17:16 88 year old male, with past medical history of DVT on Coumadin, HTN, Afib, PPM placement, COPD, Bladder tumor s/p resection, DM2, and anemia, presents to the ED for evaluation of left arm swelling since few days. Patient states inpatient rehab admission for the past month s/p questionable hairline fracture and informs being discharged yesterday. As per patient, he was diagnosed with DVT at the Rehab 1 week ago and was subsequently started on Coumadin. Patient informs left arm swelling at the time but was asked to have it elevated for alleviation of the swelling. Patient states history of blood clot in his left arm in 2014 for which surgical intervention was needed. Patient currently informs associated bilateral lower extremity swelling but denies any other somatic complaints. Patient denies any fevers, chills, headache, dizziness, chest pain, shortness of breath, dyspnea on exertion, cough, abdominal pain, nausea, vomiting, diarrhea, back pain, neck pain, or any other complaints. PMD: Dr. Young Vascular surgeon: Dr. Troncoso from [facility] [employer] Showman: Dr. Dillard Time/Duration: 1 week Symptom Onset: Gradual Symptom Course: Unchanged Activities at Onset: Light Context: Home Past Medical History - Provider Review Nursing Documentation Reviewed: Yes - Infectious Disease Hx of Infectious Diseases: None - Tetanus Immunization Tetanus Immunization: Unknown - Cardiac Hx Cardiac Disorders: Yes (Pacemaker, Afib) Hx Congestive Heart Failure: Yes Hx Hypertension: Yes - Pulmonary Hx Respiratory Disorders: Yes Hx Asthma: No Hx Bronchitis: Yes Hx Chronic Obstructive Pulmonary Disease (COPD): Yes Hx Emphysema: No Hx Pneumonia: No Hx Respiratory Aspiration: No Hx Respiratory Tract Infection: No Hx Sleep Apnea: No Hx Tuberculosis: No - Neurological Hx Neurological Disorder: No Hx Alzheimer's Disease: No HX Cerebrovascular Accident: No Hx Dementia: No Hx Dizziness: No Hx Meningitis: No Hx Migraine: No Hx Parkinson's Disease: No Hx Seizures: No Hx Transient Ischemic Attacks (TIA): No - HEENT Hx HEENT Disorder: Yes Hx Blind: No Hx Cataracts: Yes Hx Deafness: Yes Hx Difficulty Chewing: No Hx Epistaxis: No Hx Glaucoma: No Hx Macular Degeneration: No Other/Comment: wears glasses - Renal Hx Renal Disorder: No Hx Dialysis: No Hx Kidney Stones: No Hx Neurogenic Bladder: No Hx Pyelonephritis: No Hx Renal Cancer: No Hx Renal Failure: No - Endocrine/Metabolic Hx Diabetes Mellitus Type 2: Yes - Hematological/Oncological Hx Blood Disorders: No Hx AIDS: No Hx Anemia: No Hx Cancer: No Hx Chemotherapy: No Hx Cirrhosis: No Hx Hemophilia: No Hx Hepatitis A: No Hx Hepatitis B: No Hx Hepatitis C: No Hx Metastasis: No Hx Shingles: No Hx Sickle Cell Disease: No Hx Unexplained Bleeding: No - Integumentary Hx Dermatological Disorder: No Hx Basal Cell Carcinoma: No Hx Eczema: No Hx Melanoma: No Hx Psoriasis: No Hx Squamous Cell Carcinoma: No - Musculoskeletal/Rheumatological Hx Musculoskeletal Disorders: Yes Hx Arthritis: Yes Hx Back Pain: No Hx Degenerative Joint Disease: No Hx Falls: Yes Hx Fractures: No Hx Gout: No Hx Herniated Disk: No Hx Myasthenia Gravis: No Hx Osteoarthritis: No Hx Osteomyelitis: No Hx Osteoporosis: No Hx Rhabdomyolysis: No Hx Spinal Stenosis: No Hx Unsteady Gait: Yes - Gastrointestinal Hx Gastrointestinal Disorders: Yes (Hx lower GI bleed) Hx Colostomy: No Hx Crohn's Disease: No Hx Diverticulitis: No Hx Gall Bladder Disease: No Hx Gastroesophageal Reflux: No Hx Ileostomy: No Hx Liver Failure: No Hx Pancreatitis: No HX Swallowing Problems: No - Genitourinary/Gynecological Hx Genitourinary Disorders: Yes Hx Hematuria: No Hx Incontinence: No Hx Prostate Problems: No Hx Sexually Transmitted Diseases: No Hx Urinary Tract Infection: Yes - Psychiatric Hx Psychophysiologic Disorder: No Hx Anxiety: No Hx Bipolar Disorder: No Hx Depression: No Hx Emotional Abuse: No Hx Hallucinations: No Hx Panic Disorder: No Hx Post Traumatic Stress Disorder: No Hx Psychosis: No Hx Physical Abuse: No Hx Schizophrenia: No Hx Sexual Abuse: No Hx Substance Use: No - Past Surgical History Past Surgical History: Unable to Obtain - Surgical History Hx Amputation: No Hx Appendectomy: No Hx Cardiac Catheterization: No Hx Cholecystectomy: Yes Hx Coronary Stent: No Hx Gastric Bypass Surgery: No Hx Hysterectomy: No Hx Joint Replacement: No Hx Kidney Transplant: No Hx Liver Transplant: No Hx Mastectomy: No Hx Musculoskeletal Surgery: No Hx Open Heart Surgery: No Hx Orthopedic Surgery: No Hx Splenectomy: No Hx Valve Replacement: No - Anesthesia Hx Anesthesia Reactions: No Hx Malignant Hyperthermia: No - Suicidal Assessment Feels Threatened In Home Enviroment: No Family/Social History - Physician Review Nursing Documentation Reviewed: Yes Family/Social History: Unknown Family HX Smoking Status: Former Smoker Hx Alcohol Use: Yes Hx Substance Use: No Allergies/Home Meds Allergies/Adverse Reactions: Allergies omeprazole Allergy (Severe, Verified 11/24/18 16:52) RASH shellfish derived Allergy (Severe, Verified 11/24/18 16:52) GI UPSET EGG Adverse Reaction (Severe, Verified 11/24/18 16:52) NAUSEA Home Medications: Home Meds Medication Instructions Recorded Confirmed Oxybutynin [Ditropan Tab] 10 mg PO DAILY 07/08/16 11/24/18 Amiodarone [Cordarone] 200 mg PO DAILY 09/14/16 11/24/18 diltiaZEM CD [Cardizem CD] 240 mg PO DAILY 09/14/16 11/24/18 Cu/Se/Vit A/Vit C/Vit E/Zinc 1 tab PO DAILY 02/02/18 11/24/18 [Ocuvite] Ergocalciferol (Vitamin D2) 2,000 iu PO DAILY 02/02/18 11/24/18 [Vitamin D2] Multivit-Min/FA/Lycopen/Lutein 1 tab PO DAILY 02/02/18 11/24/18 [Centrum Silver Tablet] Travoprost [Travatan Z] 1 drop BOTHEYES DAILY 02/02/18 11/24/18 Vitamin B Complex [Balance B-100] 1 tab PO DAILY 02/02/18 11/24/18 Review of Systems - Physician Review All systems were reviewed & negative as marked: Yes - Review of Systems Constitutional: absent: Fevers Respiratory: absent: SOB, Cough Cardiovascular: Edema (left arm and bilateral lower extremity). absent: Chest Pain Gastrointestinal: absent: Abdominal Pain, Diarrhea, Nausea, Vomiting Genitourinary Male: absent: Dysuria, Urinary Output Changes Musculoskeletal: absent: Back Pain, Neck Pain Skin: absent: Rash Neurological: absent: Headache, Dizziness Physical Exam Vital Signs Reviewed: Yes Vital Signs Temp Pulse Resp BP Pulse Ox 11/24/18 16:51 98.0 F 94 H 18 122/65 95 Temperature: Afebrile Blood Pressure: Normal Pulse: Regular Respiratory Rate: Normal Appearance: Positive for: Well-Appearing, Non-Toxic, Comfortable Pain Distress: None Mental Status: Positive for: Alert and Oriented X 3 - Systems Exam Head: Present: Atraumatic, Normocephalic Pupils: Present: PERRL Extroacular Muscles: Present: EOMI Conjunctiva: Present: Normal Respiratory/Chest: Present: Clear to Auscultation, Good Air Exchange. No: Respiratory Distress, Accessory Muscle Use Cardiovascular: Present: Regular Rate and Rhythm, Normal S1, S2. No: Murmurs Abdomen: No: Tenderness, Distention, Peritoneal Signs Upper Extremity: Present: Edema (Moderate edeam to left forearm), Normal ROM, NORMAL PULSES, Neurovascularly Intact. No: Cyanosis, Tenderness, Erythema Lower Extremity: Present: Edema (2+ pitting edema to bilateral lower extremity). No: CALF TENDERNESS Neurological: Present: GCS=15, CN II-XII Intact, Speech Normal Skin: Present: Warm, Dry, Normal Color. No: Rashes Psychiatric: Present: Alert, Oriented x 3, Normal Insight, Normal Concentration Medical Decision Making ED Course and Treatment: 11/24/18 17:16 Impression: 88 year old male presents to the ED for medical evaluation of left arm swelling. Plan: -- EKG -- Labs -- Chest X-ray -- US of Left Upper Extremity -- US of bilateral Lower Extremity -- Reassess and disposition Prior Visits: Notes and results from previous visits were reviewed. Progress Notes: Chest X-ray : CM, +venous congestion, consistent with CHF, new compared to last Chest X-ray done on 10/15/18. EKG : ventricular pacemaker at 91 bpm. Labs : inr 1.6, trop (-), bnp [id number]. US doppler LUE : no dvt. US doppler b/l LE : no dvt. Lasix 20 mg IV ordered. On reevaluation, patient remains awake alert and oriented 3 in no acute distress, still reports no CP, shortness of breath, back pain. Diagnostic results d/w the patient. Patient states that he would much prefer to go home, states that he has coumadin 1 mg and lasix [address] Young called. Based on history, exam and diagnostic results plan will be for outpatient follow-up. Case discussed with Dr. Young, he agrees with outpatient follow-up, he request that the patient begin a dose of Coumadin 5 mg now and to advise the patient to increase the dose of his Coumadin from 1 mg to 2 mg starting tomorrow and to have the patient call him at his office on Saturday11/26/18, and he will see the patient then for follow-up. Patient advised of Dr. Young's instructions. Advised to follow up with primary care physician in 1-2 days without fail. Advised to take medication advised by Dr. Young. Return to the emergency room at any time for any new or worsening symptoms. Patient states he fully agrees with and understands discharge instructions. States that he agrees with the plan and disposition. Verbalized and repeated discharge instructions and plan. I have given the patient opportunity to ask any additional questions. - RAD Interpretation Radiology Orders: 11/24/18 17:16 DUPLEX LOWER EXTRM VEIN BILAT [US] Stat 11/24/18 17:17 CHEST PORTABLE [RAD] Stat 11/24/18 17:18 DUPLEX UPPER EXTRM VEIN LEFT [US] Stat - PA / HOTEL SERVER / Resident Statement MD/DO has reviewed & agrees with the documentation as recorded. - Scribe Statement The provider has reviewed the documentation as recorded by the Scribe Andreas Wayne. All medical record entries made by the Frandyibe were at my direction and pers onally dictated by me. I have reviewed the chart and agree that the record accurately reflects my personal performance of the history, physical exam, medical decision making, and the department course for this patient. I have also personally directed, reviewed, and agree with the discharge instructions and disposition. Disposition/Present on Arrival - Present on Arrival Any Indicators Present on Arrival: No History of DVT/PE: Yes History of Uncontrolled Diabetes: No Urinary Catheter: No History of Decub. Ulcer: No History Surgical Site Infection Following: None - Disposition Have Diagnosis and Disposition been Completed?: Yes Diagnosis: Left arm swelling, CHF (congestive heart failure) Disposition: HOME/ ROUTINE Disposition Time: 22:00 Patient Plan: Discharge Condition: STABLE Discharge Instructions (ExitCare): Heart Failure (ED) Additional Instructions: Thank you for letting us take care of you today. You were treated for left arm swelling, CHF. The emergency medical care you received today was directed at your acute symptoms. Take 2 tablets of your coumadin starting tomorrow until you see your doctor. Call your doctor on Saturday11/26/18 and see him either that day or the following day for follow up. It may take several days for your symptoms to resolve. Return to the Emergency Department if your symptoms worsen, do not improve, or if you have any other problems. Please contact your doctor in 2 days for re-evaluation and follow up. Bring any paperwork you were given at discharge with you along with any medications you are taking to your follow up visit. Our treatment cannot replace ongoing medical care by a primary care provider (PCP) outside of the emergency department. Thank you for allowing the [facility] team to be part of your care today. Forms: Teachable ([employer])
[2018-11-24 18:15] LABS: BASO # 0.06 K/mm3 (0.0-2.0); BASO % 0.6 % (0.0-3.0); EOS # 0.3 (0.0-0.7); EOS % 2.7 % (1.5-5.0); GRAN # 7.42 (1.4-6.5); LYMPH # 0.9 (1.2-3.4); LYMPH % 10.1 % (22.0-35.0); MEAN CELL VOLUME 90.4 fl (80.0-105.0); MEAN CORPUSCULAR HEMOGLOBIN 28.5 pg (25.0-35.0); MEAN CORPUSCULAR HGB CONC 31.5 g/dl (31.0-37.0); MEAN PLATELET VOLUME 9.6 fl (7.0-11.0); MONO # 0.6 (0.1-0.6); MONO % 6.6 % (1.0-6.0); RBC 3.86 10^6/uL (3.5-6.1); RED CELL DISTRIBUTION WIDTH 15.3 % (11.5-14.5); WHITE BLOOD COUNT 9.3 10^3/uL (4.5-11.0)
[2018-11-24 18:19] LABS: INR 1.62; PARTIAL THROMBOPLASTIN TIME 36.9 Seconds (25.1-36.5); PROTHROMBIN TIME 18.6 SECONDS (9.4-12.5)
[2018-11-24 18:27] LABS: ALB/GLOB RATIO 1.1 (1.1-1.8); ALT/SGPT 25 U/L (7-56); AST/SGOT 43 U/L (17-59); BLOOD UREA NITROGEN 18 mg/dL (7-21); CALCIUM 8.9 mg/dL (8.4-10.5); GFR NON-AFRICAN AMERICAN > 60
[2018-11-24 18:38] LABS: B-TYPE NATRIURETIC PEPTIDE 4690 pg/mL (0-450); TROPONIN I 0.01 ng/mL
--- NOTE | 2018-11-24 18:40 | RAD ---
Date of service: 11/24/2018 HISTORY: Left arm pain and edema COMPARISON: 10/15/2018 FINDINGS: LUNGS: Pulmonary vascular congestion. No focal infiltrates PLEURA: No significant pleural effusion identified, no pneumothorax apparent. CARDIOVASCULAR: Atherosclerotic calcifications identified primarily aortic arch. Position/ configuration of pacemaker Cardiomegaly and pulmonary vascular congestion. OSSEOUS STRUCTURES: No significant abnormalities. VISUALIZED UPPER ABDOMEN: Normal. OTHER FINDINGS: None. IMPRESSION: Cardiomegaly/pulmonary vascular congestion presumed acute and representing new findings compared to 10/15/2018
[2018-11-24 21:29] VITALS: O2SAT 98
[2018-11-24 22:03] VITALS: BP 148/65; PULSE 58; TEMP 98
--- NOTE | 2018-11-25 10:38 | CARD ---
APPROVED REPORT Date of service: 11/24/2018 EKG Measurement Heart [id number] <Conclusion> Poor data quality, interpretation may be adversely affected Electronic ventricular pacemaker
--- NOTE | 2018-11-25 14:50 | US ---
PROCEDURE: Left upper extremity venous ultrasound HISTORY: Arm pain and swelling. Evaluate for deep venous thrombosis. PHYSICIAN(S): Den Elizalde MD. FINDINGS: The visualized leftinternal jugular vein is sonographically normal and compressible. No evidence of obstruction or thrombus is seen. The visualized segments of the left subclavian vein are patent with normal waveforms. No sonographic evidence of obstruction or thrombosis is seen. The visualized deep venous system of the proximal leftupper extremity is sonographically normal and compressible. IMPRESSION: 1. No sonographic evidence for deep venous thrombosis in the visualized segments of the left upper extremity.
--- NOTE | 2018-11-25 14:52 | US ---
HISTORY: Leg pain and swelling. Evaluate for DVT PHYSICIAN(S): Den Elizalde MD. TECHNIQUE: Duplex sonography and color-flow Doppler with graded compression were used to evaluate the deep venous systems of both lower extremities. The exam is limited by edema FINDINGS: The visualized deep venous systems of both lower extremities are sonographically normal and compressible. Normal wave forms and augmentation are seen. There is no sonographic evidence for deep venous thrombosis in the visualized segments of both lower extremities. IMPRESSION: No sonographic evidence for deep venous thrombosis in the visualized segments of both lower extremities.
== END 2018-11-24 22:20 | disposition home or self-care (01) ==
LOC: ED 16:30
DX: M79.89 Other specified soft tissue disorders (principal); I50.9 Heart failure, unspecified; I10 Essential (primary) hypertension; E11.9 Type 2 diabetes mellitus without complications; I48.91 Unspecified atrial fibrillation; Z95.0 Presence of cardiac pacemaker; Z87.891 Personal history of nicotine dependence
CPT/HCPCS: 71045; 80053; 82550; 83615; 83735; 83880; 84484; 85025; 85610; 85730; 93005; 93970; 93971; 96374; 99284; J1940

== ENCOUNTER 2018-12-08 20:52 | Inpatient (IN) | payer MEDICARE, BC ==
[2018-12-08 20:56] VITALS: BMI 25.4
--- NOTE | 2018-12-08 21:50 | ED PDOC ---
Arrival/HPI - General Chief Complaint: Trauma Time Seen by Provider: 12/08/18 20:58 Historian: Patient - History of Present Illness Narrative History of Present Illness (Text): 12/08/18 21:49 Ravi De La Rosa is an 88 year old male, whose past medical history includes hypertension, atrial fibrillation, DVT on Warfarin, COPD, bladder tumor s/p resection, diabetes, and anemia, who presents to the Emergency department status post fall at home. Patient reports he has a history of recent left femur fracture with no surgical intervention, and was recently discharged from subacute rehab on 11/23. Patient states he felt unsteady today while walking at home and fell to the ground.No head trauma.No LOC. Patient states he was unable to get up on his own and is now complaining of left hip pain. Patient denies any fever, chills, chest pain, shortness of breath, nausea, vomiting, back pain, headache, dizziness, or any other complaints. Symptom Onset: Gradual Symptom Course: Unchanged Activities at Onset: Light Context: Home Past Medical History - Provider Review Nursing Documentation Reviewed: Yes - Infectious Disease Hx of Infectious Diseases: None - Tetanus Immunization Tetanus Immunization: Unknown - Cardiac Hx Cardiac Disorders: Yes (Pacemaker, Afib) Hx Congestive Heart Failure: Yes Hx Hypertension: Yes - Pulmonary Hx Respiratory Disorders: Yes Hx Asthma: No Hx Bronchitis: Yes Hx Chronic Obstructive Pulmonary Disease (COPD): Yes Hx Emphysema: No Hx Pneumonia: No Hx Respiratory Aspiration: No Hx Respiratory Tract Infection: No Hx Sleep Apnea: No Hx Tuberculosis: No - Neurological Hx Neurological Disorder: No Hx Alzheimer's Disease: No HX Cerebrovascular Accident: No Hx Dementia: No Hx Dizziness: No Hx Meningitis: No Hx Migraine: No Hx Parkinson's Disease: No Hx Seizures: No Hx Transient Ischemic Attacks (TIA): No - HEENT Hx HEENT Disorder: Yes Hx Blind: No Hx Cataracts: Yes Hx Deafness: Yes Hx Difficulty Chewing: No Hx Epistaxis: No Hx Glaucoma: No Hx Macular Degeneration: No Other/Comment: wears glasses - Renal Hx Renal Disorder: No Hx Dialysis: No Hx Kidney Stones: No Hx Neurogenic Bladder: No Hx Pyelonephritis: No Hx Renal Cancer: No Hx Renal Failure: No - Endocrine/Metabolic Hx Diabetes Mellitus Type 2: Yes - Hematological/Oncological Hx Blood Disorders: No Hx AIDS: No Hx Anemia: No Hx Cancer: No Hx Chemotherapy: No Hx Cirrhosis: No Hx Hemophilia: No Hx Hepatitis A: No Hx Hepatitis B: No Hx Hepatitis C: No Hx Metastasis: No Hx Shingles: No Hx Sickle Cell Disease: No Hx Unexplained Bleeding: No - Integumentary Hx Dermatological Disorder: No Hx Basal Cell Carcinoma: No Hx Eczema: No Hx Melanoma: No Hx Psoriasis: No Hx Squamous Cell Carcinoma: No - Musculoskeletal/Rheumatological Hx Musculoskeletal Disorders: Yes Hx Arthritis: Yes Hx Back Pain: No Hx Degenerative Joint Disease: No Hx Falls: Yes Hx Fractures: No Hx Gout: No Hx Herniated Disk: No Hx Myasthenia Gravis: No Hx Osteoarthritis: No Hx Osteomyelitis: No Hx Osteoporosis: No Hx Rhabdomyolysis: No Hx Spinal Stenosis: No Hx Unsteady Gait: Yes - Gastrointestinal Hx Gastrointestinal Disorders: Yes (Hx lower GI bleed) Hx Colostomy: No Hx Crohn's Disease: No Hx Diverticulitis: No Hx Gall Bladder Disease: No Hx Gastroesophageal Reflux: No Hx Ileostomy: No Hx Liver Failure: No Hx Pancreatitis: No HX Swallowing Problems: No - Genitourinary/Gynecological Hx Genitourinary Disorders: Yes Hx Hematuria: No Hx Incontinence: No Hx Prostate Problems: No Hx Sexually Transmitted Diseases: No Hx Urinary Tract Infection: Yes - Psychiatric Hx Psychophysiologic Disorder: No Hx Anxiety: No Hx Bipolar Disorder: No Hx Depression: No Hx Emotional Abuse: No Hx Hallucinations: No Hx Panic Disorder: No Hx Post Traumatic Stress Disorder: No Hx Psychosis: No Hx Physical Abuse: No Hx Schizophrenia: No Hx Sexual Abuse: No Hx Substance Use: No - Past Surgical History Past Surgical History: Unable to Obtain - Surgical History Hx Amputation: No Hx Appendectomy: No Hx Cardiac Catheterization: No Hx Cholecystectomy: Yes Hx Coronary Stent: No Hx Gastric Bypass Surgery: No Hx Hysterectomy: No Hx Joint Replacement: No Hx Kidney Transplant: No Hx Liver Transplant: No Hx Mastectomy: No Hx Musculoskeletal Surgery: No Hx Open Heart Surgery: No Hx Orthopedic Surgery: No Hx Splenectomy: No Hx Valve Replacement: No - Anesthesia Hx Anesthesia Reactions: No Hx Malignant Hyperthermia: No - Suicidal Assessment Feels Threatened In Home Enviroment: No Family/Social History - Physician Review Nursing Documentation Reviewed: Yes Family/Social History: Unknown Family HX Smoking Status: Former Smoker Hx Alcohol Use: Yes Hx Substance Use: No Allergies/Home Meds Allergies/Adverse Reactions: Allergies omeprazole Allergy (Severe, Verified 11/24/18 16:52) RASH shellfish derived Allergy (Severe, Verified 11/24/18 16:52) GI UPSET EGG Adverse Reaction (Severe, Verified 11/24/18 16:52) NAUSEA Home Medications: Home Meds Medication Instructions Recorded Confirmed RX: Oxybutynin [Ditropan Tab] 10 mg PO DAILY 07/08/16 11/24/18 RX: Amiodarone [Cordarone] 200 mg PO DAILY 09/14/16 11/24/18 RX: diltiaZEM CD [Cardizem CD] 240 mg PO DAILY 09/14/16 11/24/18 RX: Cu/Se/Vit A/Vit C/Vit E/Zinc 1 tab PO DAILY 02/02/18 11/24/18 [Ocuvite] RX: Ergocalciferol (Vitamin D2) 2,000 iu PO DAILY 02/02/18 11/24/18 [Vitamin D2] RX: Multivit-Min/FA/Lycopen/Lutein 1 tab PO DAILY 02/02/18 11/24/18 [Centrum Silver Tablet] RX: Travoprost [Travatan Z] 1 drop BOTHEYES DAILY 02/02/18 11/24/18 RX: Vitamin B Complex [Balance 1 tab PO DAILY 02/02/18 11/24/18 B-100] Review of Systems - Physician Review All systems were reviewed & negative as marked: Yes - Review of Systems Constitutional: Normal. absent: Fevers Eyes: Normal ENT: Normal Respiratory: Normal. absent: SOB, Cough Cardiovascular: Normal. absent: Chest Pain Gastrointestinal: Normal. absent: Abdominal Pain, Diarrhea, Nausea, Vomiting Genitourinary Male: Normal. absent: Dysuria, Frequency, Hematuria, Urinary Output Changes Musculoskeletal: Arthralgias (+left hip pain) Skin: Normal. absent: Rash Neurological: Other (+unsteady gait) Endocrine: Normal Hemo/Lymphatic: Normal Psychiatric: Normal Physical Exam Vital Signs Reviewed: Yes Vital Signs Temp Pulse Resp BP Pulse Ox 12/08/18 21:11 97.7 F 54 L 18 131/63 99 Temperature: Afebrile Blood Pressure: Normal Pulse: Regular Respiratory Rate: Normal Appearance: Positive for: Well-Appearing, Non-Toxic, Comfortable Pain Distress: None Mental Status: Positive for: Alert and Oriented X 3 - Systems Exam Head: Present: Atraumatic, Normocephalic Pupils: Present: PERRL Extroacular Muscles: Present: EOMI Conjunctiva: Present: Normal Ears: Present: Normal, NORMAL TM, Normal Canal. No: Erythema, TM Bulging, Fluid, TM Perf Mouth: Present: Moist Mucous Membranes Pharnyx: Present: Normal. No: ERYTHEMA, EXUDATE, TONSILS ENLARGED, Peritonsilar Swelling, Uvular Deviation, Muffled/Hoarse Voice, Strider, Soft Palate/Uvular Edema Nose (External): Present: Atraumatic Nose (Internal): Present: Other (Dried blood in nares) Neck: Present: Normal Range of Motion. No: MIDLINE TENDERNESS Respiratory/Chest: Present: Clear to Auscultation, Good Air Exchange. No: Respiratory Distress, Accessory Muscle Use Cardiovascular: Present: Regular Rate and Rhythm, Normal S1, S2. No: Murmurs Abdomen: No: Tenderness, Distention, Peritoneal Signs Back: Present: Normal Inspection Upper Extremity: Present: Normal Inspection. No: Cyanosis, Edema Lower Extremity: Present: Normal Inspection, Normal ROM, Neurovascularly Intact, Other (Some discomfort with left hip flexion). No: Edema, CALF TENDERNESS, Soledad's Sign Neurological: Present: GCS=15, CN II-XII Intact, Speech Normal, Motor Func Grossly Intact, Normal Sensory Function Skin: Present: Warm, Dry, Normal Color. No: Rashes Psychiatric: Present: Alert, Oriented x 3, Normal Insight, Normal Concentration Medical Decision Making ED Course and Treatment: 12/08/18 21:49 Impression: 88 year old male complaining of unsteady gait and left hip pain. Plan: -- EKG -- Chest X-ray -- XR Bilateral Hips with Pelvis -- Labs, cardiac enzymes -- Reassess and disposition Prior Visits: Notes and results from previous visits were reviewed. Progress Notes: Reviewed EKG, 100% paced rhythm. 12/08/18 23:30 Radiology reviewed, XR Hips shows chronic changes, no acute processes. Chest X-ray shows no acute processes. 12/08/18 23:[address] Langford, who is aware and agrees with plan. Accepts pt in to his service. [facility] be [facility] to [facility] for gait instability, hip pain, and elevated INR. - Scribe Statement The provider has reviewed the documentation as recorded by the Moy Yepez Provider Scribe Attestation: All medical record entries made by the Scribe were at my direction and personally dictated by me. I have reviewed the chart and agree that the record accurately reflects my personal performance of the history, physical exam, medical decision making, and the department course for this patient. I have also personally directed, reviewed, and agree with the discharge instructions and disposition. Disposition/Present on Arrival - Present on Arrival Any Indicators Present on Arrival: No History of DVT/PE: Yes History of Uncontrolled Diabetes: No Urinary Catheter: No History of Decub. Ulcer: No History Surgical Site Infection Following: None - Disposition Have Diagnosis and Disposition been Completed?: Yes Diagnosis: Fall, Hip pain, Gait instability, Elevated INR Disposition: HOSPITALIZED Disposition Time: 23:46 Patient Plan: Admission Patient Problems: Current Active Problems Problem Status Onset Elevated INR Acute Fall Acute Hip pain Acute Unstable gait Acute Condition: STABLE
[2018-12-08 22:33] LABS: HEMOGLOBIN 11.9 g/dL (14.0-18.0); MEAN CELL VOLUME 88.9 fl (80.0-105.0); MEAN CORPUSCULAR HEMOGLOBIN 28.6 pg (25.0-35.0); MEAN CORPUSCULAR HGB CONC 32.2 g/dl (31.0-37.0); MEAN PLATELET VOLUME 10.5 fl (7.0-11.0); RBC 4.16 10^6/uL (3.5-6.1); RED CELL DISTRIBUTION WIDTH 15.5 % (11.5-14.5); WHITE BLOOD COUNT 7.4 10^3/uL (4.5-11.0)
[2018-12-08 22:44] LABS: TROPONIN I 0.02 ng/mL
[2018-12-08 22:45] LABS: ALB/GLOB RATIO 1.2 (1.1-1.8); ALT/SGPT 40 U/L (7-56); AST/SGOT 46 U/L (17-59); BLOOD UREA NITROGEN 27 mg/dL (7-21); CALCIUM 9.2 mg/dL (8.4-10.5); GFR NON-AFRICAN AMERICAN 57
[2018-12-08 23:01] LABS: PROTHROMBIN TIME 76.9 SECONDS (9.4-12.5)
[2018-12-08 23:07] LABS: INR 6.49
--- NOTE | 2018-12-09 06:04 | CP.PCM.HP ---
<Juana Ashfodr - Last Filed: 12/09/18 13:05> History of Present Illness - History of Present Illness History of Present Illness: 87yo male PMHx HTN, Afib, permanent pacemaker, DVT on coumadin, bladder ca s/p resection, DM2, and anemia presents s/p fall at home. Patient was recently discharged from the hospital and [facility] after sustaining a fall and L femur fracture with no surgical intervention. Patient states he had returned home after physical therapy and sat down on the couch when he fell asleep. Upon awaking he wanted to make himself some soup however he was unable to get up and felt his LLE "gave way." He tried to balance himself on his walker but was unable to and fell over. He called his niece to help him up and brought him to the ER. Patient denied any LOC and did not hit his head. He does recall falling on his left hip and reported the pain at that time was 8/10 in intensity. Patient stated the pain was located in his left hip and did not radiate down his LLE and denied any numbness/tingling in his extremities b/l. Currently patient reports the pain is 0/10 and is comfortable when lying down. He denied other complaints of dizziness, lightheadedness, chest pain, palpitations, SOB, cough, abd pain, nausea, vomiting, bowel/bladder complaints, swelling in his legs bilaterally. Of note, patient has been working with physical therapy 2-3 times/week. 12-system ROS reviewed and negative except as above. PMHx: HTN, Afib, permanent pacemaker, DVT on coumadin, bladder ca s/p resection, DM2, and anemia PSurgHx: pacer placement FamHx: noncontributory SocHx: lung ca (sister) PMD: Dr. Young Present on Admission - Present on Admission Any Indicators Present on Admission: Yes History of DVT/PE: Yes Review of Systems - Review of Systems All systems: reviewed and no additional remarkable complaints except Review of Systems: as per HPI Past Patient History - Infectious Disease Hx of Infectious Diseases: None - Tetanus Immunizations Tetanus Immunization: Unknown - Past Social History Smoking Status: Former Smoker - CARDIAC Hx Cardiac Disorders: Yes (Pacemaker, Afib) Hx Congestive Heart Failure: Yes Hx Hypertension: Yes - PULMONARY Hx Respiratory Disorders: Yes Hx Asthma: No Hx Bronchitis: Yes Hx Chronic Obstructive Pulmonary Disease (COPD): Yes Hx Emphysema: No Hx Pneumonia: No Hx Respiratory Aspiration: No Hx Respiratory Tract Infection: No Hx Sleep Apnea: No Hx Tuberculosis: No - NEUROLOGICAL Hx Neurological Disorder: No Hx Alzheimer's Disease: No HX Cerebrovascular Accident: No Hx Dementia: No Hx Dizziness: No Hx Meningitis: No Hx Migraine: No Hx Parkinson's Disease: No Hx Seizures: No Hx Transient Ischemic Attacks (TIA): No - HEENT Hx HEENT Problems: Yes Hx Blind: No Hx Cataracts: Yes Hx Deafness: Yes Hx Difficulty Chewing: No Hx Epistaxis: No Hx Glaucoma: No Hx Macular Degeneration: No Other/Comment: wears glasses - RENAL Hx Chronic Kidney Disease: No Hx Dialysis: No Hx Kidney Stones: No Hx Neurogenic Bladder: No Hx Pyelonephritis: No Hx Renal (Kidney) Cancer: No Hx Renal Failure: No - ENDOCRINE/METABOLIC Hx Diabetes Mellitus Type 2: Yes - HEMATOLOGICAL/ONCOLOGICAL Hx Blood Disorders: No Hx AIDS: No Hx Anemia: No Hx Cancer: No Hx Chemotherapy: No Hx Cirrhosis: No Hx Hemophilia: No Hx Hepatitis A: No Hx Hepatitis B: No Hx Hepatitis C: No Hx Metastesis: No Hx Shingles: No Hx Sickle Cell Disease: No Hx Unexplained Bleeding: No - INTEGUMENTARY Hx Dermatological Problems: No Hx Basil Cell: No Hx Eczema: No Hx Melanoma: No Hx Psoriasis: No Hx Squamous Cell: No - MUSCULOSKELETAL/RHEUMATOLOGICAL Hx Musculoskeletal Disorders: Yes Hx Arthritis: Yes Hx Back Pain: No Hx Degenerative Joint Disease: No Hx Falls: Yes Hx Fractures: No Hx Gout: No Hx Herniated Disk: No Hx Myasthenia Gravis: No Hx Osteoarthritis: No Hx Osteomyelitis: No Hx Osteoporosis: No Hx Rhabdomyolysis: No Hx Spinal Stenosis: No Hx Unsteady Gait: Yes - GASTROINTESTINAL Hx Gastrointestinal Disorders: Yes (Hx lower GI bleed) Hx Colostomy: No Hx Crohn's Disease: No Hx Diverticulitis: No Hx Gall Bladder Disease: No Hx Gastroesophageal Reflux: No Hx Ileostomy: No Hx Liver Failure: No Hx Pancreatitis: No HX Swallowing Problems: No - GENITOURINARY/GYNECOLOGICAL Hx Genitourinary Disorders: Yes Hx Hematuria: No Hx Incontinence: No Hx Prostate Problems: No Hx Sexually Transmitted Disorders: No Hx Urinary Tract Infection: Yes - PSYCHIATRIC Hx Psychophysiologic Disorder: No Hx Anxiety: No Hx Bipolar Disorder: No Hx Depression: No Hx Emotional Abuse: No Hx Hallucinations: No Hx Panic Symptoms: No Hx Post Traumatic Stress Disorder: No Hx Psychosis: No Hx Physical Abuse: No Hx Schizophrenia: No Hx Sexual Abuse: No Hx Substance Use: No - SURGICAL HISTORY Hx Amputation: No Hx Appendectomy: No Hx Cardiac Catheterization: No Hx Cholecystectomy: Yes Hx Coronary Stent: No Hx Gastric Bypass Surgery: No Hx Hysterectomy: No Hx Joint Replacement: No Hx Kidney Transplant: No Hx Liver Transplant: No Hx Mastectomy: No Hx Musculoskeletal Surgery: No Hx Open Heart Surgery: No Hx Orthopedic Surgery: No Hx Splenectomy: No Hx Valve Replacement: No - ANESTHESIA Hx Anesthesia Reactions: No Hx Malignant Hyperthermia: No Meds Allergies/Adverse Reactions: Allergies Allergy/AdvReac Type Severity Reaction Status Date / Time omeprazole Allergy Severe RASH Verified 12/09/18 11:58 shellfish derived Allergy Severe GI UPSET Verified 12/09/18 11:58 EGG AdvReac Severe NAUSEA Verified 12/09/18 11:58 Physical Exam - Constitutional Appears: Non-toxic, No Acute Distress - Head Exam Head Exam: ATRAUMATIC, NORMAL INSPECTION, NORMOCEPHALIC - Eye Exam Eye Exam: EOMI, Normal appearance, PERRL. absent: Conjunctival injection, Scleral icterus - ENT Exam ENT Exam: Mucous Membranes Moist - Neck Exam Neck exam: Positive for: Full Rom, Normal Inspection - Respiratory Exam Respiratory Exam: Clear to Auscultation Bilateral, NORMAL BREATHING PATTERN. absent: Accessory Muscle Use, Rales, Rhonchi, Wheezes, Respiratory Distress - Cardiovascular Exam Cardiovascular Exam: +S1, +S2. absent: Irregular Rhythm, Systolic Murmur - GI/Abdominal Exam GI & Abdominal Exam: Normal Bowel Sounds, Soft. absent: Firm, Guarding, Rigid, Tenderness - Extremities Exam Extremities exam: Positive for: normal capillary refill, normal inspection, pedal pulses present. Negative for: tenderness Additional comments: LLE slightly > RLE no signs of erythema or ecchymosis on left hip/back - Back Exam Back exam: NORMAL INSPECTION. absent: rash noted, tenderness - Neurological Exam Neurological exam: Alert, CN II-XII Intact, Oriented x3 - Psychiatric Exam Psychiatric exam: Normal Affect, Normal Mood - Skin Skin Exam: Dry, Intact, Normal Color, Warm Results - Vital Signs Recent Vital Signs: Last Vital Signs Temp 97.7 F 12/08/18 21:11 Pulse 54 L 01/14/19 21:11 Resp 18 12/08/18 21:11 BP 131/63 12/08/18 21:11 Pulse Ox 99 12/08/18 21:11 - Labs Result Diagrams: 12/08/18 22:17 12/08/18 22:17 Labs: Laboratory Results - last 24 hr 12/08/18 12/08/18 12/08/18 22:17 22:17 22:17 WBC 7.4 D RBC 4.16 Hgb 11.9 L Hct 37.0 L MCV 88.9 MCH 28.6 MCHC 32.2 RDW 15.5 H Plt Count 314 MPV 10.5 PT 76.9 H INR 6.49 H* APTT 61.0 H Sodium 139 Potassium 4.8 Chloride 104 Carbon Dioxide 28 Anion Gap 12 BUN 27 H Creatinine 1.2 Est GFR ( Amer) > 60 Est GFR (Non-Af Amer) 57 Random Glucose 103 Calcium 9.2 Total Bilirubin 0.5 AST 46 ALT 40 Alkaline Phosphatase 105 Lactate Dehydrogenase 625 Total Creatine Kinase 85 Troponin I 0.02 D Total Protein 7.3 Albumin 4.0 Globulin 3.3 Albumin/Globulin Ratio 1.2 Assessment & Plan - Assessment and Plan (Free Text) Assessment: 1. Fall 2. Supratherapeutic INR 3. Stable greater trochanteric fracture of left hip 4. HTN 5. Afib 6. Permanent Pacemaker 7. DVT on coumadin 8. bladder tumor s/p resection 9. DM2 10. Anemia 11. Constipation Plan: Patient's blood work, imaging, and vitals reviewed. Ortho Dr. Soria consulted. 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 X-ray of left hip unchanged. No surgical intervention at this time. Patient's head CT unremarkable for acute processes. Will repeat head CT in the AM in light of patient being on coumadin and having a supratherapeutic INR. Will hold home coumadin and recheck INR with next AM labs. No need for reversal agents at this time. Patient has been normotensive since admission- will continue to monitor blood pressure closely. Continue home multivitamins and bowel regimen. Patient on RISS and accuchecks- maintain euglycemia. Anemia is chronic in nature- monitor. Patient's pain is controlled on tylenol- adjust as needed. Physical therapy on board. Heart healthy diet ordered. Patient was spoken to in great detail regarding plan and all questions were addressed thoroughly. Discussed with Dr. Primitivo Ashford PGY3 <Roderick Langford - Last Filed: 12/09/18 19:20> Results - Vital Signs Recent Vital Signs: Last Vital Signs Temp 98.5 F 12/09/18 09:00 Pulse 63 12/09/18 09:00 Resp 17 12/09/18 16:08 BP 128/59 L 12/09/18 09:00 Pulse Ox 99 12/09/18 09:00 - Labs Result Diagrams: 12/08/18 22:17 12/08/18 22:17 Labs: Laboratory Results - last 24 hr 12/08/18 12/08/18 12/08/18 22:17 22:17 22:17 WBC 7.4 D RBC 4.16 Hgb 11.9 L Hct 37.0 L MCV 88.9 MCH 28.6 MCHC 32.2 RDW 15.5 H Plt Count 314 MPV 10.5 PT 76.9 H INR 6.49 H* APTT 61.0 H Sodium 139 Potassium 4.8 Chloride 104 Carbon Dioxide 28 Anion Gap 12 BUN 27 H Creatinine 1.2 Est GFR ( Amer) > 60 Est GFR (Non-Af Amer) 57 Random Glucose 103 Calcium 9.2 Total Bilirubin 0.5 AST 46 ALT 40 Alkaline Phosphatase 105 Lactate Dehydrogenase 625 Total Creatine Kinase 85 Troponin I 0.02 D Total Protein 7.3 Albumin 4.0 Globulin 3.3 Albumin/Globulin Ratio 1.2 Assessment & Plan - Assessment and Plan (Free Text) Plan: Pt seen and examined by me. I have reviewed the note of the medical art therapist and I agree with it. I have discussed the assessment and plan with the resident. I have reviewed the medications and the last labs.The pt had a fall. He was recently discharged from a [facility] about 3 weeks ago. He was at the facility for about 6 weeks. He is on Coumadin with a high INR. Initial CT of the head is negative. Will need to repeat his CT of the head to r/o bleed. He is willing to stay. The pt has A fib and a hx of a DVT and is on Coumadin. Tylenol prn for pain.
--- NOTE | 2018-12-09 08:01 | CT ---
Date of service: 12/09/2018 PROCEDURE: CT HEAD WITHOUT CONTRAST. HISTORY: s/p fall; on coumadin INR 6 COMPARISON: CT 10/15/2018 TECHNIQUE: Axial computed tomography images were obtained through the head/brain without intravenous contrast. Radiation dose: Total exam DLP = 834.55 mGy-cm. This CT exam was performed using one or more of the following dose reduction techniques: Automated exposure control, adjustment of the mA and/or kV according to patient size, and/or use of iterative reconstruction technique. FINDINGS: HEMORRHAGE: No intracranial hemorrhage. BRAIN: No mass effect or edema. There is moderate atrophy. Mild microvascular changes. No acute findings VENTRICLES: Unremarkable. No hydrocephalus. CALVARIUM: Unremarkable. PARANASAL SINUSES: Unremarkable as visualized. No significant inflammatory changes. MASTOID AIR CELLS: Unremarkable as visualized. No inflammatory changes. OTHER FINDINGS: The report concurs with the preliminary [facility] report IMPRESSION: No acute intracranial findings
--- NOTE | 2018-12-09 09:11 | RAD ---
Date of service: 12/08/2018 HISTORY: medical clearance COMPARISON: No prior. FINDINGS: LUNGS: The lungs are well inflated. There is mild pulmonary venous congestion. PLEURA: No pleural effusions or pneumothorax. CARDIOVASCULAR: There is severe cardiomegaly. There is stable position of left-sided permanent pacing device. No aortic atherosclerotic calcifications present. OSSEOUS STRUCTURES: There an S-shaped scoliosis in the thoracolumbar spine. VISUALIZED UPPER ABDOMEN: Normal. OTHER FINDINGS: None. IMPRESSION: Severe cardiomegaly and mild pulmonary venous congestion. No acute findings.
[2018-12-09] MEDS ORDERED: Albuterol 0.083% Inhal Sol (2.5 mg/3 mL) UD INH PRN (10:12)
--- NOTE | 2018-12-09 10:21 | RAD ---
PROCEDURE: Radiographs of the pelvis and bilateral hips HISTORY: fall/pain COMPARISON: None. FINDINGS: BONES: Pelvic ring is intact. There is severe diffuse bone demineralization There is an acute comminuted superiorly displaced fracture in the left greater trochanter with 1.6 cm superior displacement of the largest fracture fragment. JOINTS: Right hip: Unremarkable. Left hip: Unremarkable. Sacroiliac Joints: Unremarkable. Pubic symphysis: Unremarkable. SOFT TISSUES: Normal. OTHER FINDINGS: There are advanced atherosclerotic vascular calcifications. IMPRESSION: Acute comminuted superiorly displaced fracture in the left greater trochanter with 1.6 cm superior displacement of the largest fracture fragment.
--- NOTE | 2018-12-09 10:25 | CON ---
DATE: 12/09/2018 ORTHOPEDIC CONSULTATION HISTORY OF PRESENT ILLNESS: The patient was readmitted to [facility] when he had another fall at home and he was hit his head and he is on blood thinners. Last time he fell that I saw him was on 10/14/2018, he fell down at home, sustained a stable greater trochanteric fracture of the tip and that does not need surgery after that stay here for ambulatory subacute rehab out of the [facility]. I lost touch with him until he presents today, when he fell at home this morning he could not get up out of bed, so he had to call his niece to get him out of bed and bring him into the hospital. X-rays showed no worsening of the left hip problem, which was a stable tip of the greater trochanteric fracture that does not need surgery and he also hurt his head, I think he is written for x-rays for the head, see if he has any bleeding. So with this, we are going to admit him and I will give him physical therapy while he is here to maintain his strength and that is why he could not get up he said when he did fall his quadriceps were so weak he could not get up, so he had to call his niece to get him up. So we are going to continue to do physical therapy and get him stonger to minimize another fal because he is 88 years old quadriceps are very weak. FINAL DIAGNOSIS: Contusion of left hip, not worsening of the fracture and probably peripheral neuropathy from weak quadriceps muscles left worse than the right. Florentino Soria DO [facility]
--- NOTE | 2018-12-09 11:01 | CARD ---
APPROVED REPORT Date of service: 12/08/2018 EKG Measurement Heart [id number] <Conclusion> Electronic ventricular pacemaker
[2018-12-09] MEDS: Insulin Lispro (humaLOG) LOW Coverage SC SCH ×3 (11:49→22:20)
[2018-12-09] MEDS ORDERED: Pneumococcal 23-Valent Vaccine IM ONE (17:02)
[2018-12-09 22:51] VITALS: TEMP 98.1
[2018-12-10 06:40] LABS: HEMOGLOBIN 10.7 g/dL (14.0-18.0); MEAN CELL VOLUME 88.5 fl (80.0-105.0); MEAN CORPUSCULAR HEMOGLOBIN 27.9 pg (25.0-35.0); MEAN CORPUSCULAR HGB CONC 31.6 g/dl (31.0-37.0); MEAN PLATELET VOLUME 10.6 fl (7.0-11.0); RBC 3.83 10^6/uL (3.5-6.1); RED CELL DISTRIBUTION WIDTH 15.6 % (11.5-14.5); WHITE BLOOD COUNT 6.9 10^3/uL (4.5-11.0)
[2018-12-10 06:45] LABS: PARTIAL THROMBOPLASTIN TIME 50.7 Seconds (25.1-36.5)
[2018-12-10 07:05] LABS: ALB/GLOB RATIO 1.1 (1.1-1.8); ALBUMIN 3.2 g/dL (3.0-4.8); ALT/SGPT 35 U/L (7-56); AST/SGOT 42 U/L (17-59); BLOOD UREA NITROGEN 25 mg/dL (7-21); CALCIUM 8.6 mg/dL (8.4-10.5); GFR NON-AFRICAN AMERICAN 57
[2018-12-10 07:09] LABS: INR 4.64
[2018-12-10 08:20] VITALS: BP 111/80; PULSE 56; RESP 18; O2SAT 97
--- NOTE | 2018-12-10 09:21 | CT ---
Date of service: 12/10/2018 PROCEDURE: CT HEAD WITHOUT CONTRAST. HISTORY: s/p fall; on coumadin INR 6 COMPARISON: 12/09/2018 TECHNIQUE: Axial computed tomography images were obtained through the head/brain without intravenous contrast. Radiation dose: Total exam DLP = 852.61 mGy-cm. This CT exam was performed using one or more of the following dose reduction techniques: Automated exposure control, adjustment of the mA and/or kV according to patient size, and/or use of iterative reconstruction technique. FINDINGS: HEMORRHAGE: No intracranial hemorrhage. BRAIN: No mass effect or edema. Mild atrophy. Mild microvascular changes. VENTRICLES: Unremarkable. No hydrocephalus. CALVARIUM: Unremarkable. PARANASAL SINUSES: Unremarkable as visualized. No significant inflammatory changes. MASTOID AIR CELLS: Unremarkable as visualized. No inflammatory changes. OTHER FINDINGS: The report concurs with the preliminary [facility] report IMPRESSION: No acute intracranial findings
[2018-12-10] MEDS ORDERED: Cholecalciferol 1,000 INTLU TAB PO SCH (10:00)
[2018-12-10] MEDS ORDERED: POLYETHYLENE GLYCOL 3350 17 GM/Dose PACKET PO SCH (10:00)
[2018-12-10] MEDS ORDERED: Multivitamin Therapeutic Tab PO SCH (10:00)
[2018-12-10] MEDS: Insulin Lispro (humaLOG) LOW Coverage SC SCH ×2 (10:32→12:05)
--- NOTE | 2018-12-10 11:51 | CP.PCM.DIS ---
<Juana Ashford - Last Filed: 12/10/18 12:44> Provider - Provider Date of Admission: 12/08/18 23:38 Attending physician: Roderick Langford MD Primary care physician: Dr. Young Consults: 12/08/18 23:42 Physician Consult Stat Comment: Consulting Provider: Florentino Soria Consulting Physician: Florentino Soria Reason for Consult: Fall/hip pain/gait instability 12/09/18 17:02 Inpatient [employer] Core Measures Referral Routine Comment: Physician Instructions: Reason For Exam: EVALUATION Nursing Referral for Wound Care Routine Comment: NO OPEN WOUND Physician Instructions: Reason For Exam: EVALUATION Transition In Care/Readmission Reduction Routine Comment: Physician Instructions: Reason For Exam: EVALUATION 12/09/18 17:06 Nursing Referral for Palliative Care Routine Comment: Physician Instructions: Reason For Exam: EVALUATION Social Work Referral Routine Comment: PT NEEDS ASSISTANCE AT HOME,LIVES ALONE. Physician Instructions: Reason For Exam: EVALUATION Time Spent in preparation of Discharge (in minutes): 45 Hospital Course - Lab Results Lab Results: Most Recent Lab Values WBC 6.9 10^3/uL (4.5-11.0) 12/10/18 06:10 RBC 3.83 10^6/uL (3.5-6.1) 12/10/18 06:10 Hgb 10.7 g/dL (14.0-18.0) L 12/10/18 06:10 Hct 33.9 % (42.0-52.0) L 12/10/18 06:10 MCV 88.5 fl (80.0-105.0) 12/10/18 06:10 MCH 27.9 pg (25.0-35.0) 12/10/18 06:10 MCHC 31.6 g/dl (31.0-37.0) 12/10/18 06:10 RDW 15.6 % (11.5-14.5) H 12/10/18 06:10 Plt Count 283 10^3/uL (120.0-450.0) 12/10/18 06:10 MPV 10.6 fl (7.0-11.0) 12/10/18 06:10 PT 55.0 SECONDS (9.4-12.5) H 12/10/18 06:10 INR 4.64 H* 12/10/18 06:10 APTT 50.7 Seconds (25.1-36.5) H 12/10/18 06:10 Sodium 138 mmol/L (132-148) 12/10/18 06:10 Potassium 4.3 mmol/L (3.6-5.0) 12/10/18 06:10 Chloride 106 mmol/L (98-107) 12/10/18 06:10 Carbon Dioxide 26 mmol/L (21-33) 12/10/18 06:10 Anion Gap 10 (10-20) 12/10/18 06:10 BUN 25 mg/dL (7-21) H 12/10/18 06:10 Creatinine 1.2 mg/dl (0.8-1.5) 12/10/18 06:10 Est GFR ( Amer) > 60 12/10/18 06:10 Est GFR (Non-Af Amer) 57 12/10/18 06:10 POC Glucose (mg/dL) 153 mg/dL (65-110) H 12/10/18 11:18 Random Glucose 108 mg/dL (70-110) 12/10/18 06:10 Calcium 8.6 mg/dL (8.4-10.5) 12/10/18 06:10 Phosphorus 3.6 mg/dL (2.5-4.5) 12/10/18 06:10 Magnesium 2.2 mg/dL (1.7-2.2) 12/10/18 06:10 Total Bilirubin 0.4 mg/dL (0.2-1.3) 12/10/18 06:10 AST 42 U/L (17-59) 12/10/18 06:10 ALT 35 U/L (7-56) 12/10/18 06:10 Alkaline Phosphatase 83 U/L (38-126) 12/10/18 06:10 Lactate Dehydrogenase 625 U/L (333-699) 12/08/18 22:17 Total Creatine Kinase 85 U/L (35-230) 12/08/18 22:17 Troponin I 0.02 ng/mL D 12/08/18 22:17 Total Protein 6.2 g/dL (5.8-8.3) 12/10/18 06:10 Albumin 3.2 g/dL (3.0-4.8) 12/10/18 06:10 Globulin 3.0 gm/dL 12/10/18 06:10 Albumin/Globulin Ratio 1.1 (1.1-1.8) 12/10/18 06:10 - Hospital Course Hospital Course: Upon Admission 87yo male PMHx HTN, Afib, permanent pacemaker, DVT on coumadin, bladder ca s/p resection, DM2, and anemia presented s/p fall at home. Patient was recently discharged from the hospital and [facility] after sustaining a fall and L femur fracture with no surgical intervention. Patient stated he had returned home after physical therapy and sat down on the couch when he fell asleep. Upon awaking he was unable to get up and felt his LLE "gave way." He tried to balance himself on his walker but was unable to and fell over. Patient denied any LOC and did not hit his head. He does recall falling on his left hip and reported the pain at that time was 8/10 in intensity. Patient stated the pain was located in his left hip and did not radiate down his LLE and denied any numbness/tingling in his extremities b/l. Currently patient reports the pain is 0/10 and is comfortable when lying down. He denied other complaints of dizziness, lightheadedness, chest pain, palpitations, SOB, cough, abd pain, nausea, vomiting, bowel/bladder complaints, swelling in his legs bilaterally. Of note, patient has been working with physical therapy 2-3 times/week. Hospital Course Patient was admitted to med/surg and Ortho Dr. Soria was consulted. Head CT on admission was unremarkable for any acute process. 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 X- ray of left hip unchanged from prior and patient was to have no surgical intervention at this time. Patient's INR was elevated and coumadin was held. Patient had no acute blood loss and H&H was stable. The following day patient had a repeat head CT which was unchanged and unremarkable for any acute process. Patient's mentation at baseline. INR trended down but was still elevated. Patient was counseled thoroughly on not taking Coumadin on the day of discharge and to restart taking it the next day and to follow up with his PMD upon discharge. Patient voiced understanding and agreed. On day of discharge, patient was deemed medically optimized for discharge. Discharge Instructions "You are being discharged from [facility]. Please do NOT take your prescribed Coumadin dose tonight 12/10/17. You may resume taking Coumadin 1mg by mouth tomorrow 12/11/17. Please follow up with your primary care doctor Dr. Young within 7 days to have your INR checked and your coumadin dose adjusted as needed. Please also follow up with your dress cutter Dr. Dillard within 10 days to have your pacemaker interrogated. You will be continued to be visited by physical therapy 2 times/week. Please continue to work with them on strengthening and gait training exercises. You will additionally be continued to be visited by home nurse once/week. If symptoms return please visit your nearest Emergency Room. " Patient understood and agreed Please note this is a discharge summary. For full hospital record please refer to EMR. Discharge Exam - Head Exam Head Exam: ATRAUMATIC, NORMAL INSPECTION, NORMOCEPHALIC - Eye Exam Eye Exam: EOMI, Normal appearance. absent: Conjunctival injection, Scleral icterus - ENT Exam ENT Exam: Mucous Membranes Moist - Respiratory Exam Respiratory Exam: NORMAL BREATHING PATTERN. absent: Accessory Muscle Use, Rales, Rhonchi, Wheezes, Respiratory Distress - Cardiovascular Exam Cardiovascular Exam: +S1, +S2. absent: Systolic Murmur - GI/Abdominal Exam GI & Abdominal Exam: Normal Bowel Sounds, Soft. absent: Firm, Guarding, Rigid, Tenderness - Extremities Exam Extremities exam: normal capillary refill, pedal pulses present Additional comments: no signs of erythema or ecchymosis on left hip/back - Back Exam Back exam: NORMAL INSPECTION. absent: rash noted - Neurological Exam Neurological exam: Alert, CN II-XII Intact, Oriented x3 - Psychiatric Exam Psychiatric exam: Normal Affect, Normal Mood - Skin Skin Exam: Dry, Intact, Normal Color Discharge Plan - Follow Up Plan Condition: STABLE Disposition: HOME/ ROUTINE Instructions: Preventing Falls in the Older Adult, What to Do When Your INR Is Too High , Pneumococcal Polysaccharide Vaccine (23-Valent), Weakness (GEN) Additional Instructions: You are being discharged from [facility]. Please do NOT take your prescribed Coumadin dose tonight 12/10/17. You may resume taking Coumadin 1mg by mouth tomorrow 12/11/17. Please follow up with your primary care doctor Dr. Young within 7 days to have your INR checked and your coumadin dose adjusted as needed. Please also follow up with your dress cutter Dr. Dillard within 10 days to have your pacemaker interrogated. You will be continued to be visited by physical therapy 2 times/week. Please continue to work with them on strengthening and gait training exercises. You will additionally be continued to be visited by home nurse once/week. If symptoms return please visit your nearest Emergency Room. Referrals: José Miguel Young MD [Staff Provider] - Buzz Dillard MD [Staff Provider] - <Roderick Langford - Last Filed: 12/10/18 18:59> Provider - Provider Date of Admission: 12/08/18 23:38 Attending physician: Roderick Langford MD Consults: 12/08/18 23:42 Physician Consult Stat Comment: Consulting Provider: Florentino Soria Consulting Physician: Florentino Soria Reason for Consult: Fall/hip pain/gait instability 12/09/18 17:02 Inpatient [employer] Core Measures Referral Routine Comment: Physician Instructions: Reason For Exam: EVALUATION Nursing Referral for Wound Care Routine Comment: NO OPEN WOUND Physician Instructions: Reason For Exam: EVALUATION Transition In Care/Readmission Reduction Routine Comment: Physician Instructions: Reason For Exam: EVALUATION 12/09/18 17:06 Nursing Referral for Palliative Care Routine Comment: Physician Instructions: Reason For Exam: EVALUATION Social Work Referral Routine Comment: PT NEEDS ASSISTANCE AT HOME,LIVES ALONE. Physician Instructions: Reason For Exam: EVALUATION Hospital Course - Lab Results Lab Results: Most Recent Lab Values WBC 6.9 10^3/uL (4.5-11.0) 12/10/18 06:10 RBC 3.83 10^6/uL (3.5-6.1) 12/10/18 06:10 Hgb 10.7 g/dL (14.0-18.0) L 12/10/18 06:10 Hct 33.9 % (42.0-52.0) L 12/10/18 06:10 MCV 88.5 fl (80.0-105.0) 12/10/18 06:10 MCH 27.9 pg (25.0-35.0) 12/10/18 06:10 MCHC 31.6 g/dl (31.0-37.0) 12/10/18 06:10 RDW 15.6 % (11.5-14.5) H 12/10/18 06:10 Plt Count 283 10^3/uL (120.0-450.0) 12/10/18 06:10 MPV 10.6 fl (7.0-11.0) 12/10/18 06:10 PT 55.0 SECONDS (9.4-12.5) H 12/10/18 06:10 INR 4.64 H* 12/10/18 06:10 APTT 50.7 Seconds (25.1-36.5) H 12/10/18 06:10 Sodium 138 mmol/L (132-148) 12/10/18 06:10 Potassium 4.3 mmol/L (3.6-5.0) 12/10/18 06:10 Chloride 106 mmol/L (98-107) 12/10/18 06:10 Carbon Dioxide 26 mmol/L (21-33) 12/10/18 06:10 Anion Gap 10 (10-20) 12/10/18 06:10 BUN 25 mg/dL (7-21) H 12/10/18 06:10 Creatinine 1.2 mg/dl (0.8-1.5) 12/10/18 06:10 Est GFR ( Amer) > 60 12/10/18 06:10 Est GFR (Non-Af Amer) 57 12/10/18 06:10 POC Glucose (mg/dL) 153 mg/dL (65-110) H 12/10/18 11:18 Random Glucose 108 mg/dL (70-110) 12/10/18 06:10 Calcium 8.6 mg/dL (8.4-10.5) 12/10/18 06:10 Phosphorus 3.6 mg/dL (2.5-4.5) 12/10/18 06:10 Magnesium 2.2 mg/dL (1.7-2.2) 12/10/18 06:10 Total Bilirubin 0.4 mg/dL (0.2-1.3) 12/10/18 06:10 AST 42 U/L (17-59) 12/10/18 06:10 ALT 35 U/L (7-56) 12/10/18 06:10 Alkaline Phosphatase 83 U/L (38-126) 12/10/18 06:10 Lactate Dehydrogenase 625 U/L (333-699) 12/08/18 22:17 Total Creatine Kinase 85 U/L (35-230) 12/08/18 22:17 Troponin I 0.02 ng/mL D 12/08/18 22:17 Total Protein 6.2 g/dL (5.8-8.3) 12/10/18 06:10 Albumin 3.2 g/dL (3.0-4.8) 12/10/18 06:10 Globulin 3.0 gm/dL 12/10/18 06:10 Albumin/Globulin Ratio 1.1 (1.1-1.8) 12/10/18 06:10 - Hospital Course Hospital Course: Pt seen and examined by me. I have reviewed the note of the medical office secretary and I agree with it. I have discussed the assessment and plan with the resident. I have reviewed the medications and the last labs. Pt had a fall and came to the ER. He has a hx of A fib and has been on Coumadin. His INR was elevated. A CT of the head was initially done in the ER and was negative. He had a repeat CT of the head done 24 hours later and it was still negative. He did not wish to go to [facility] again. He was discharged from the [facility] about 3 weeks ago. He will be discharged home.
== END 2018-12-10 16:08 | disposition home health service (06) | DRG 605 ==
LOC: ED 20:52 → ERH 23:38 → 5RNO 12-09 16:29
PROVIDERS: ADMIT Internal Medicine Nephrology; ATTEND Internal Medicine Nephrology
DX: S70.02XA Contusion of left hip, initial encounter (principal); S72.112D Displaced fracture of greater trochanter of left femur, subsequent encounter for closed fracture with routine healing; I48.2 Chronic atrial fibrillation; D64.9 Anemia, unspecified; R79.1 Abnormal coagulation profile; R26.81 Unsteadiness on feet; K59.00 Constipation, unspecified; E11.42 Type 2 diabetes mellitus with diabetic polyneuropathy; J44.9 Chronic obstructive pulmonary disease, unspecified; I10 Essential (primary) hypertension; W19.XXXA Unspecified fall, initial encounter; Z79.01 Long term (current) use of anticoagulants; Z85.51 Personal history of malignant neoplasm of bladder; Y92.009 Unspecified place in unspecified non-institutional (private) residence as the place of occurrence of the external cause; Y93.01 Activity, walking, marching and hiking; Z95.0 Presence of cardiac pacemaker; Z87.891 Personal history of nicotine dependence

== ENCOUNTER 2018-12-29 16:35 | Emergency (ER) | payer OTHER, MEDICARE | END 2018-12-29 17:17 | disposition left against medical advice (07) | LOC: MERGE 16:35 → ED 16:35 | DX: Z02.89 Encounter for other administrative examinations (principal); S49.91XA Unspecified injury of right shoulder and upper arm, initial encounter ==

== ENCOUNTER 2018-12-29 16:55 | Emergency (ER) | payer MEDICARE, BC ==
[2018-12-29 17:22] VITALS: BMI 26.5
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
--- NOTE | 2018-12-29 18:23 | CT ---
Date of service: 12/29/2018 PROCEDURE: CT HEAD WITHOUT CONTRAST. HISTORY: headache COMPARISON: Comparison is made with 12/10/2018 TECHNIQUE: Axial computed tomography images were obtained through the head/brain without intravenous contrast. Radiation dose: Total exam DLP = 851.91 mGy-cm. This CT exam was performed using one or more of the following dose reduction techniques: Automated exposure control, adjustment of the mA and/or kV according to patient size, and/or use of iterative reconstruction technique. FINDINGS: HEMORRHAGE: No intracranial hemorrhage. BRAIN: No mass effect or edema. 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 Mild volume loss and mild chronic microvascular white matter ischemic disease are again noted. VENTRICLES: Unremarkable. No hydrocephalus. CALVARIUM: Unremarkable. PARANASAL SINUSES: Unremarkable as visualized. No significant inflammatory changes. MASTOID AIR CELLS: Unremarkable as visualized. No inflammatory changes. OTHER FINDINGS: None. IMPRESSION: No evidence of acute intracranial hemorrhage mass effect or midline shift. No significant interval changes noted since the prior study.
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
[2018-12-29 19:00] VITALS: BP 165/72; PULSE 50; RESP 16; TEMP 98.3; O2SAT 99
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
== END 2018-12-29 18:58 | disposition home or self-care (01) ==
LOC: ED 16:55
DX: S51.801A Unspecified open wound of right forearm, initial encounter (principal); V49.9XXA Car occupant (driver) (passenger) injured in unspecified traffic accident, initial encounter; I48.91 Unspecified atrial fibrillation; Z79.01 Long term (current) use of anticoagulants; I10 Essential (primary) hypertension; I50.9 Heart failure, unspecified; E11.9 Type 2 diabetes mellitus without complications; Z95.0 Presence of cardiac pacemaker; Z85.51 Personal history of malignant neoplasm of bladder; Z87.891 Personal history of nicotine dependence; Z86.718 Personal history of other venous thrombosis and embolism